=== PATIENT | male | born 2000 | race Caucasian/White ===

== ENCOUNTER 2025-05-23 09:59 | Observation (INO) | payer BC, SELFPAY ==
--- OUTSIDE RECORDS SUMMARY | 2025-05-22 10:45 | XMS_ITS | Encounter Summary ---
Author Organization [facility] Healthcare Address [address] [place] [id number] Care Team Providers Care Photocopy Operator Name Role Phone Unknown, Notinfile Primary Care Provider Unavail able Reason for Visit * Reason Comments Diarrhea Lasting longer than 48 hours. Started Thursday. Thinks it may be food poisoning. Bit into some pink chicken. Denies vomiting. Pepto Bismol not working. Encounter Details Date Type Department Care Team (Late st Contact Info) Description 05/22/2025 10:45 AM CDT Office Visit [facility] at [address] [address] Nasreen Strong NP [address] [place] [address] [address] [place] [address] Diarrhea, unspecified type (Primary Dx); Tachycardia Social History Tobacco Use Types Packs/Day Years Used Date Smoking Tobacco: Never Assessed Sex and Gender Information Value Date Recorded Sex Assigned at Not on file Legal Sex Male 9:29 AM CDT Gender Identity Not on file Sexual Orientation Not on file documented as of this encounter Last Filed Vital Signs Vital Sign Reading Time Taken Comments Blood Pressure 126/89 05/22/2025 10:50 AM CDT Pulse 110 05/22/2025 11:06 AM CDT Temperature 36.9 C (98.5 F) 05/22/2025 10:50 AM CDT Respiratory Rate 20 05/22/2025 10:5 0 AM CDT Oxygen Saturation 97% 05/22/2025 10: 50 AM CDT Inhaled Oxygen Concentration - - Weight 56.6 kg (124 lb 11.2 oz) 025 10:50 AM CDT Height - - Body Mass Index - - documented in this encounter Progress Notes * Nasreen Strong NP - 05/22/2025 10:45 AM CDT Images from the original note were not included. Subjective/Objective Patient ID: Chris Connors is a 24 y.o. male. This patient has verbally consented to recording this visit in order to utilize AI technology in generating this note. Chief Complaint Diarrhea (Lasting longer than 48 hours. Started Thursday. Thinks it may be food poisoning. Bit into some pink chicken. Denies vomiting. Pepto Bismol not working. ) History of Present Illness Chris Connors is a 24 year old male who presents with diarrhea since Thursday night/Thursday am. Diarrhea occurs every 30 minutes to four hours, with no relief from Pepto Bismol. Constant, dull abdominal discomfort is present, especially around the umbilical area. He ate a quesadilla with potentially undercooked chicken on Thursday, with diarrhea starting that night. Stools contain no blood or mucus. No recent travel or known exposures. Roommates are asymptomatic. No fever, chills, sweats, body aches, nausea, or vomiting. He maintains hydration with water and has normal urination. Allergic to amoxicillin. In town for school, living with two roommates. Review of Systems All other systems reviewed and are negative. Physical Exam ABDOMEN: Mild discomfort around the umbilicus. Physical Exam Vitals and nursing note reviewed. Constitutional: General: He is not in acute distress. Appearance: Normal appearance. He is not ill-appearing. Cardiovascular: Rate and Rhythm: Normal rate and regular rhythm. Pulmonary: Effort: Pulmonary effort is normal. Breath sounds: Normal breath sounds. Abdominal: General: Abdomen is flat. Bowel sounds are normal. Palpations: Abdomen is soft. Tenderness: There is abdominal tenderness in the periumbilical area. There is no right CVA tenderness, left CVA tenderness, guarding or rebound. Skin: General: Skin is warm and dry. Capillary Refill: Capillary refill takes less than 2 seconds. Findings: No bruising, erythema or rash. Neurological: Mental Status: He is alert and oriented to person, place, and time. Gait: Gait normal. Vitals: 05/22/25 1050 05/22/25 1106 BP: 126/89 Pulse: 100 110 Resp: 20 Temp: 36.9 ??C (98.5 ??F) TempSrc: Oral SpO2: 97% Weight: 56.6 kg (124 lb 11.2 oz) No results found. No past medical history on file. No current outpatient medications on file. Allergies Allergen Reactions Amoxicillin Rash Social History Tobacco Use Smoking status: Not on file Smokeless tobacco: Not on file Substance and Sexual Activity Drug use: Not on file Sexual activity: Not on file Alcohol Use: Not on file No past surgical history on file. Procedures Assessment/Plan 1. Diarrhea, unspecified type (Primary) 2. Tachycardia Results Assessment & Plan Acute diarrhea Acute gastroenteritis likely. Expected resolution in 24-72 hours. - Avoid Pepto Bismol and Imodium. - discussed with pt I would recommend ED for further evaluation due to abdominal tenderness and tachycardia. Patient states at this time he does not feel like he needs to go to ED. Advised my recommendation is ED. - stressed Visit ER if symptoms worsen, call and schedule follow up with PCP this week. - Maintain hydration. Disposition Treatment plan including expectations, follow up, and return precautions discussed with patient/parent, verbalizes understanding. Medication dosage, use, and potential adverse reactions discussed with patient/parent. Advised to follow up with PCP if symptoms do not resolve as expected or sooner if condition worsens. Signs/symptoms warranting ER evaluation reviewed. Patient and/or guardian was given an opportunity to ask questions, questions answered. Nasreen Strong NP This office note has been partially dictated using [employer] software, and as a result portions of the record may have been created with this software. Occasional wrong-word or '[id number]' substitutions may have occurred due to the inherent limitations of voice recognition software. Read the chartcarefully and recognize, using context, where substitutions have occurred. Cosigned by Avi Coffman MD at 05/22/2025 11:20 AM CDT documented in this encounter Plan of Treatment Not on file documented as of this encounter Visit Diagnoses Diagnosis Diarrhea, unspecified type- Primary Tachycardia Unspecified tachycardia documented in this encounter Care Teams Photocopy Operator Relationship Specialty Start Date End Date Unknown, Notinfile PCP - General 05/22/25 documented as of this encounter
--- OUTSIDE RECORDS SUMMARY | 2025-05-22 10:45 | XMS_ITS | Encounter Summary ---
Author Organization [facility] Healthcare Address [address] [place] [id number] Care Team Providers Care Sustainable Products Marketing Manager Name Role Phone Unknown, Notinfile Primary Care Provider Unavail able Reason for Visit * Reason Comments Diarrhea Lasting longer than 48 hours. Started Thursday. Thinks it may be food poisoning. Bit into some pink chicken. Denies vomiting. Pepto Bismol not working. Encounter Details Date Type Department Care Team (Late st Contact Info) Description 05/22/2025 10:45 AM CDT Office Visit [facility] at [address] [address] Nasreen Strong NP [address] [place] [address] [address] [place] [address] Diarrhea, unspecified type (Primary Dx); [...] office note has been partially dictated using [employer] software, and as a result portions of the record may have been created with this software. Occasional wrong-word or '[id number]' substitutions may have occurred due to the [...] tachycardia documented in this encounter Care Teams Sustainable Products Marketing Manager Relationship Specialty Start Date End Date Unknown, Notinfile PCP - General 05/22/25 documented as of this encounter
[2025-05-23] VITALS (31 sets, daily range): BP systolic 103–132; BP diastolic 63–91; PULSE 82–137; RESP 12–44; TEMP 36.7–37.6; O2SAT 93–100; BMI 16.8
--- NOTE | 2025-05-23 | ECHO_ITS ---
Patient Info Name: Chris Connors Age: 24 years : 2000 Gender: Male Ht: 69 in Wt: 125 lbs BSA: 1.65 m2 HR: 98 bpm BP: 123 / 84 mmHg Heart Rhythm: Sinus Rhythm Technical Quality: Good Exam Date: 05/23/2025 12:46 PM Patient Status: E Admit Date: 05/23/2025 Exam Type: CA echo doppler color flow Complete two-dimensional, color flow and Doppler transthoracic echocardiogram is performed. Staff Referring Physician: Rehana Malik Application Support Developer: Rand Garcia Attending Provider: Rehana Malik Summary 1. Complete two-dimensional, color flow and Doppler transthoracic echocardiogram is performed. 2. Left ventricular chamber dimension is normal. 3. Left ventricular systolic function is normal, estimated at 60-65. 4. The left ventricular diastolic function is normal. 5. E/e' 6 is not elevated. 6. There is trace tricuspid valve regurgitation. 7. No pulmonary hypertension, estimated pulmonary arterial systolic pressure is 23 mmHg. Left Ventricle E/e' 6 is not elevated. Left ventricular chamber dimension is normal. Left ventricular systolic function is normal, estimated at 60-65. The left ventricular diastolic function is normal. Right Ventricle Right ventricular chamber dimension is normal. Right ventricular systolic function is normal and with normal TAPSE 2.7 cm. Left Atria Left atrial chamber dimension is normal. Right Atria Right atrial chamber dimension is normal. Aortic Valve The aortic valve is trileaflet. There is no aortic valve stenosis. There is no aortic valve regurgitation. Pulmonic Valve There is no pulmonic regurgitation. Mitral Valve There is no mitral valve stenosis. There is no mitral valve regurgitation. Tricuspid Valve There is trace tricuspid valve regurgitation. No pulmonary hypertension, estimated pulmonary arterial systolic pressure is 23 mmHg. Pericardium/Pleural There is no pericardial effusion. Inferior Vena Cava Normal inferior vena cava with >50% collapse upon inspiration consistent with normal right atrial pressure, 5 mmHg. Aorta The aortic root size at the sinus of Valsalva is normal. Left Ventricular Outflow Tract Name Value Normal LVOT 2D LVOT Diameter 2.0 cm LVOT Doppler LVOT Peak Velocity 98 cm/s LVOT Peak Gradient 4 mmHg LVOT Mean Gradient 2 mmHg LVOT VTI 16 cm LVOT VTI/AV VTI Ratio 0.8 LVOT Stroke Volume 48 ml LVOT CO 4.7 l/min LVOT CI 2.8 l/min/m2 Pulmonic Valve Name Value Normal RVOT Doppler RVOT Peak Velocity 81 cm/s RVOT Peak Gradient 3 mmHg PV Doppler PV Peak Velocity 106 cm/s PV Peak Gradient 5 mmHg Mitral Valve Name Value Normal MV Diastolic Function MV E Peak Velocity 84 cm/s MV A Peak Velocity 69 cm/s MV E/A 1.2 MV Decel Time (PW) 105 ms MV Annular TDI MV E/e' (Septal) 6.4 MV E/e' (Lateral) 6.2 MV E/e' (Average) 6.3 Tricuspid Valve Name Value Normal TV Regurgitation Doppler TR Peak Velocity 209 cm/s TR Peak Gradient 18 mmHg Estimated PAP/RSVP RA Pressure 5 mmHg <=5 PA Systolic Pressure 23 mmHg <36 RV Systolic Pressure 23 mmHg <36 TV Annular TDI TV Lateral Marisol s' Velocity 15.9 cm/s >=9.5 Aorta Name Value Normal Ascending Aorta Ao Root Diameter (MM) 3.1 cm Ao Root Diam Index (MM) 1.9 cm/m2 Aortic Valve Name Value Normal AV Doppler AV Peak Velocity 120 cm/s AV Peak Gradient 6 mmHg AV Mean Gradient 3 mmHg AV VTI 20 cm AV Area (Cont Eq VTI) 2.4 cm2 >=3.0 AV Area (Cont Eq King) 2.5 cm2 AV DI (King) 0.82 AV Regurgitation 2D LVOT Area 3.0 cm2 Ventricles Name Value Normal LV Dimensions 2D/MM IVS Diastolic Thickness (2D) 0.8 cm 0.6-1.0 LVID Diastole (2D) 4.5 cm 4.2-5.8 LVIW Diastolic Thickness (2D) 0.7 cm 0.6-1.0 LVID Systole (2D) 3.0 cm 2.5-4.0 LVOT Diameter 2.0 cm LV Mass (2D Cubed) 99.50 g 88.00-224.00 LV Mass Index (2D Cubed) 60 g/m2 49-115 Relative Wall Thickness (2D) 0.29 <=0.42 LV Fractional Shortening/Ejection Fraction 2D/MM LV Fractional Shortening (2D) 34 % 25-43 LV EF (2D Teichholz) 63 % LV Diastolic Volume (4C MOD) 67 ml LV EF (4C MOD) 63 % LV Diastolic Volume (2C MOD) 66 ml LV EF (2C MOD) 62 % LV Diastolic Volume (BP MOD) 70 ml 62-150 LV Diastolic Volume Index (BP MOD) 43 ml/m2 34-74 LV Systolic Volume (BP MOD) 28 ml 21-61 LV Systolic Volume Index (BP MOD) 17 ml/m2 11-31 LV EF (BP MOD) 61 % 52-72 LV Diastolic Length (4C) 7.3 cm LV Systolic Length (4C) 5.9 cm LV Stroke Volume (4C MOD) 42 ml Atria Name Value Normal LA Dimensions LA Dimension (MM) 2.8 cm 3.0-4.0 LA Volume (4C A-L) 22 ml LA Volume (BP A-L) 32 ml RA Dimensions RA Area (4C) 11.1 cm2 <=18.0 Report Signatures
--- NOTE | ~2025-05-23 | XR_ITS ---
EXAMINATION: XR chest 2V DATE: 05/23/2025 11:39 INDICATION: Tachycardia TECHNIQUE: PA and lateral views of the chest were obtained. COMPARISON: None FINDINGS: The lungs are clear with no focal airspace opacities, pulmonary edema, pleural effusion or pneumothorax. The cardiomediastinal silhouette is normal. Visualized bones and soft tissues are unremarkable. IMPRESSION: 1. Normal chest radiograph. Reviewed, dictated and finalized at location A. IMPRESSION: 1. Normal chest radiograph.
--- NOTE | 2025-05-23 10:13 | ECG_ITS ---
Test Date: 2025-05-23 10:40:04 Measurements Intervals [place] Rate: 105 P: 64 WY: 142 QRS: 111 QRSD: 93 T: 6 QT: 323 QTc: 427 Interpretive Statements SINUS TACHYCARDIA RIGHT AXIS DEVIATION [QRS AXIS > 100] POSSIBLE RIGHT VENTRICULAR CONDUCTION DELAY [RSR (QR) IN V1/V2] nonspecific st changes No previous ECG available for comparison Electronically Signed On 05-23-2025 14:44:23 CDT by Quinten Jordan M.D.
--- NOTE | 2025-05-23 10:15 | ED.NAVMDI ---
HPI - Nausea/Vomiting/Diarrhea General Chief complaint: Nausea/Vomiting/Diarrhea <Rehana Malik APRN - Last Filed: 05/23/25 12:50> Stated complaint: diarrhea x 3 days <Rehana Malik APRN - Last Filed: 05/23/25 12:50> Time Seen by Provider: 05/23/25 10:02 <Rehana Malik APRN - Last Filed: 05/23/25 12:50> History of Present Illness HPI Narrative: Patient is a 24-year-old male who presents to the ER with complaints of diarrhea for the past 3 days. He reports this morning he noticed blood in his stool. Patient reports his symptoms initially started with abdominal tenderness which has resolved. He also endorses chest pain that resulted yesterday. Patient denies any nausea/vomiting, recent fevers, urinary symptoms, or recent antibiotic use. He denies any medical history relevant to this ER visit. Patient denies any recent marijuana use, alcohol use, or illicit drug use. <Rehana Malik APRN - Last Filed: 05/23/25 12:50> Related Data Allergies/Adverse reactions: Allergies Allergy/AdvReac Type Severity Reaction Status Date / Time amoxicillin Allergy Mild Hives Verified 05/23/25 15:44 <Rehana Malik APRN - Last Filed: 05/23/25 12:50> Review of Systems Review of Systems: All systems reviewed & are unremarkable except as noted in HPI and below <Rehana Malik APRN - Last Filed: 05/23/25 12:50> [facility] Social History Social History: Social History Smoking status: Never smoker Second hand tobacco smoke exposure: No Alcohol intake: former Substance use: never Substance use type: does not use Lack of Transportation: YES Lack of Food: Never True Current Housing: I Have Housing Concerned About Future Housing: No Difficulty Paying Gas/Electric Bills: No Difficulty Paying for Meds: No Currently Unemployed: No Education: Bachelor's Degree Difficulty w/ Childcare or Family Care: No Spiritual care concerns: No <Rehana Malik APRN - Last Filed: 05/23/25 12:50> Exam Narrative: GENERAL: Well appearing, thin, non-toxic, in no acute distress. HEAD: Normocephalic, atraumatic. NECK: Supple. No adenopathy, no masses. RESPIRATORY: Airway patent, respirations nonlabored. Clear to auscultation bilaterally, no rales, rhonchi, wheezing. CARDIOVASCULAR: Tachycardia without murmurs, rubs, or gallops. Peripheral pulses 2+ and equal bilaterally. ABDOMINAL: Soft, nontender, nondistended, no hepatosplenomegaly. Normoactive BS. MUSCULOSKELETAL: Moves all extremities. Strength/ROM intact without gross deformities. SKIN: Warm, dry, pallor. No rashes. NEURO: A&O X3. Speech clear. Cranial nerves II-XII intact. No ataxic movements. PSYCHIATRIC: Appropriate mood and affect. Normal interaction. GI/: Pt's rectal exam indicates no palpable hemorrhoids. His hemoccult is positive. <Rehana Malik, GOMEZ - Last Filed: 05/23/25 12:50> Course RISK AND INSURANCE MANAGER/PA Physician Supervision This visit was performed by both a physician and an APC. I performed all aspects of the MDM as documented. <Otto Neal MD - Last Filed: 05/23/25 17:50> Vital Signs Vital signs: Vital Signs Pulse Rate 97 05/23/25 10:05 Respiratory Rate 21 H 05/23/25 10:05 Blood Pressure 123/84 05/23/25 10:05 Temperature 99.6 F 05/23/25 15:17 Pulse Rate 101 H 05/23/25 16:00 Respiratory Rate 14 05/23/25 15:17 Blood Pressure 132/88 05/23/25 15:17 Pulse Oximetry 98 05/23/25 15:17 Oxygen Delivery Room Air 05/23/25 10:11 <Rehana Malik APRN - Last Filed: 05/23/25 12:50> Vital Signs Pulse Rate 97 05/23/25 10:05 Respiratory Rate 21 H 05/23/25 10:05 Blood Pressure 123/84 05/23/25 10:05 Temperature 99.6 F 05/23/25 15:17 Pulse Rate 101 H 05/23/25 16:00 Respiratory Rate 14 05/23/25 15:17 Blood Pressure 132/88 05/23/25 15:17 Pulse Oximetry 98 05/23/25 15:17 Oxygen Delivery Room Air 05/23/25 10:11 <Otto Neal MD - Last Filed: 05/23/25 17:50> MDM - Nausea/Vomiting/Diarrhea MDM Narrative Medical decision making narrative: Patient is a 24-year-old male who presents to the ER with complaints of diarrhea for the past 3 days. He reports this morning he noticed blood in his stool. Patient reports his symptoms initially started with abdominal tenderness which has resolved. He also endorses chest pain that resulted yesterday. Patient denies any nausea/vomiting, recent fevers, urinary symptoms, or recent antibiotic use. He denies any medical history relevant to this ER visit. Patient denies any recent marijuana use, alcohol use, or illicit drug use. Labs Ordered: CBC, CMP, troponin, PTT, INR, UDS, UA Imaging Ordered: Echocardiogram, chest x-ray Medications Ordered: 1 L normal saline IV bolus, potassium chloride p.o. Diagnosis: Elevated troponin, tachycardia Risks: HEART score: low risk HEART Score for Major Cardiac Events from [email or web address] on 05/23/2025 All calculations should be rechecked by clinician prior to use RESULT SUMMARY: 1 points Low Score (0-3 points) Risk of MACE of 0.9-1.7%. INPUTS: History ?> 0 = Slightly suspicious EKG ?> 1 = Non-specific repolarization disturbance Age ?> 0 = <45 Risk factors ?> 0 = No known risk factors Initial troponin ?> 0 = <Normal limit CRITICAL CARE ADDENDUM: Indication: Chest pain, rectal bleeding, tachycardia Time type: intermittent I provided a total of 55 minutes of critical care excluding separately billable procedures. This includes time w/ EMS, initial bedside evaluation, reviewing old records, review of testing done while under my care, discussion w/ the family, nurses, clinical documentation consultant and guiding the patient?s care while in the emergency department. Approximate time distribution: 15 minutes ? Initial evaluation, d/w involved parties, attempting to gather old records. 10 minutes ? Documenting medical record 10 minutes ? Review of results (EKGs, labs, imaging) 10 minutes ? Serial repeat bedside evaluation 10 minutes ? Discussing case with multiple providers Please see main chart for details. Excludes separately billable procedures. Consults: 1130- Spoke with cardiology, Dinorah Shanks, who recommends pt be admitted to the hospital for further work-up. She would like to have an ECHO performed on pt. 1145- Pt's rectal exam indicates no palpable hemorrhoids. His hemoccult is positive. 1155- Spoke with GI, Dr. Schwarz, who is aware of the patient and will consult on him. MDM: Results of imaging and lab work shared with patient and his family. It was advised patient be admitted to the hospital for further evaluation and treatment. Patient and his family verbalized understanding and are in agreement with plan. 1230- Spoke with hospitalist, JUAN JOSÉ Garcia, who was in agreement with plan for admission. Pt will be admitted to the IMU d/t his elevated troponins. <Rehana Malik, LINE MOVER - Last Filed: 05/23/25 12:50> Patient is a 24-year-old male who presents to the ER with complaints of diarrhea for the past 3 days. He reports this morning he noticed blood in his stool. Patient reports his symptoms initially started with abdominal tenderness which has resolved. He also endorses chest pain that resulted yesterday. Patient denies any nausea/vomiting, recent fevers, urinary symptoms, or recent antibiotic use. He denies any medical history relevant to this ER visit. Patient denies any recent marijuana use, alcohol use, or illicit drug use. Labs Ordered: CBC, CMP, troponin, PTT, INR, UDS, UA Imaging Ordered: Echocardiogram, chest x-ray Medications Ordered: 1 L normal saline IV bolus, potassium chloride p.o. Diagnosis: Elevated troponin, tachycardia Risks: HEART score: low risk HEART Score for Major Cardiac Events from [email or web address] on 05/23/2025 All calculations should be rechecked by clinician prior to use RESULT SUMMARY: 1 points Low Score (0-3 points) Risk of MACE of 0.9-1.7%. INPUTS: History ?> 0 = Slightly suspicious EKG ?> 1 = Non-specific repolarization disturbance Age ?> 0 = <47 Risk factors ?> 0 = No known risk factors Initial troponin ?> 0 = <Normal limit CRITICAL CARE ADDENDUM: Indication: Chest pain, rectal bleeding, tachycardia Time type: intermittent I provided a total of 55 minutes of critical care excluding separately billable procedures. This includes time w/ EMS, initial bedside evaluation, reviewing old records, review of testing done while under my care, discussion w/ the family, nurses, clinical documentation consultant and guiding the patient?s care while in the emergency department. Approximate time distribution: 15 minutes ? Initial evaluation, d/w involved parties, attempting to gather old records. 10 minutes ? Documenting medical record 10 minutes ? Review of results (EKGs, labs, imaging) 10 minutes ? Serial repeat bedside evaluation 10 minutes ? Discussing case with multiple providers Please see main chart for details. Excludes separately billable procedures. Consults: 1130- Spoke with cardiology, Dinorah Shanks, who recommends pt be admitted to the hospital for further work-up. She would like to have an ECHO performed on pt. 1145- Pt's rectal exam indicates no palpable hemorrhoids. His hemoccult is positive. 1155- Spoke with GI, Dr. Schwarz, who is aware of the patient and will consult on him. MDM: Results of imaging and lab work shared with patient and his family. It was advised patient be admitted to the hospital for further evaluation and treatment. Patient and his family verbalized understanding and are in agreement with plan. 1230- Spoke with hospitalist, JUAN JOSÉ Garcia, who was in agreement with plan for admission. Pt will be admitted to the IMU d/t his elevated troponins. This visit was performed by both a physician and an APC. I performed all aspects of the MDM as documented. <Otto Neal MD - Last Filed: 05/23/25 17:50> Differential Diagnosis Differential diagnosis: Likely gastroenteritis, dehydration and other (Hemorrhoids, NSTEMI, pericarditis, enodcarditis) <Rehana Malik APRN - Last Filed: 05/23/25 12:50> Lab Data Attestation: I reviewed the patient's lab results. <Rehana Malik APRN - Last Filed: 05/23/25 12:50> Result diagrams: 05/23/25 10:39 05/23/25 10:39 <Rehana Malik APRN - Last Filed: 05/23/25 12:50> Labs: Lab Results 05/23/25 05/23/25 05/23/25 Range/Units 10:38 10:39 10:40 WBC 5.8 (4.5-10.0) K/mm3 RBC 5.33 (4.6-6.20) M/mm3 Hgb 16.4 (14.0-18.0) g/dL Hct 46.6 (42.0-52.0) % MCV 87.4 (80-100) fl MCH 30.8 (26-34) pg MCHC 35.2 (32-36) g/dl RDW 11.8 (11.5-14.5) % Plt Count 188 (150-375) k/mm3 MPV 9.7 (7.4-10.4) fl Immature Gran % (Auto) 0.2 (0-0.5) % Neut % (Auto) 61.9 (45.5-73.1) % Lymph % (Auto) 17.0 L (18.3-44.2) % Emery % (Auto) 19.2 H (2.6-8.5) % Eos % (Auto) 1.4 (0-4.4) % Baso % (Auto) 0.3 (0.2-1.2) % Lymph # (Auto) 0.99 (0.9-3.2) K/mm3 Emery # (Auto) 1.1 H (0.1-0.6) K/mm3 Eos # (Auto) 0.1 (0-0.3) K/mm3 Baso # (Auto) 0.0 (0.0-0.1) K/mm3 Abs Immat Gran (auto) 0.01 (0.00-0.031) K/mm3 Absolute Neuts (auto) 3.6 (1.3-6.7) K/mm3 Absolute Nucleated RBC 0.000 (0.0-0.012) K/mm3 Nucleated RBC % 0.0 (0.0-0.2) % PT (11.1-14.7) Seconds INR APTT (22.3-36.8) Seconds D-Dimer (<0.48) ug/mL Sodium 139 (137-145) mmol/L Potassium 3.3 L (3.4-5.0) mmol/L Chloride 98 (98-107) mmol/L Carbon Dioxide 28 (22-30) mmol/L Anion Gap 13 H (4-12) mmol/L BUN 11 (9-20) mg/dL Creatinine 0.81 (0.7-1.3) mg/dL Estim Creat Clear Calc 100 ml/min Estimated GFR > 60 (59 - ) Glucose 103 (65-110) mg/dL Calcium 9.4 (8.4-10.2) mg/dL Total Bilirubin 1.3 (0.2-1.3) mg/dL AST 37 (17-59) U/L ALT 45 (6-50) U/L Alkaline Phosphatase 57 (38-126) U/L Troponin I 1.790 H* (0.000-0.034) ng/mL Total Protein 8.7 H (6.3-8.2) g/dL Albumin 5.1 (3.5-5.1) g/dL Lipase 46 (23-300) U/L TSH (Reflex) 2.180 (0.465-4.68) uIU/mL Urine Color Yellow (Yellow) Urine Appearance Clear (Clear) Urine pH 6.5 (5.0-9.0) Ur Specific Randall 1.009 (1.001-1.035) Urine Protein Negative (Negative) mg/dL Urine Glucose (UA) Negative (Negative) mg/dL Urine Ketones 2+ H (Negative) mg/dL Ur Blood (Man) Negative (Negative) Urine Nitrate Negative (Negative) Urine Bilirubin Negative (Negative) Urine Urobilinogen 0.2 (<2.0) mg/dL Leukocyte Esterase Rfl Negative (Negative) JAVI/UL Urine Opiates Screen Negative (Negative) Urine Methadone Screen Negative (Negative) Ur Barbiturates Screen Negative (Negative) Ur Phencyclidine Scrn Negative (Negative) Ur Amphetamine Screen Negative (Negative) U Benzodiazepines Scrn Negative (Negative) Urine Cocaine Screen Negative (Negative) U Cannabinoids Screen Negative (Negative) C. difficile (PCR) Positive A* (NEGATIVE) 05/23/25 Range/Units 11:29 WBC (4.5-10.0) K/mm3 RBC (4.6-6.20) M/mm3 Hgb (14.0-18.0) g/dL Hct (42.0-52.0) % MCV (80-100) fl MCH (26-34) pg MCHC (32-36) g/dl RDW (11.5-14.5) % Plt Count (150-375) k/mm3 MPV (7.4-10.4) fl Immature Gran % (Auto) (0-0.5) % Neut % (Auto) (45.5-73.1) % Lymph % (Auto) (18.3-44.2) % Emery % (Auto) (2.6-8.5) % Eos % (Auto) (0-4.4) % Baso % (Auto) (0.2-1.2) % Lymph # (Auto) (0.9-3.2) K/mm3 Emery # (Auto) (0.1-0.6) K/mm3 Eos # (Auto) (0-0.3) K/mm3 Baso # (Auto) (0.0-0.1) K/mm3 Abs Immat Gran (auto) (0.00-0.031) K/mm3 Absolute Neuts (auto) (1.3-6.7) K/mm3 Absolute Nucleated RBC (0.0-0.012) K/mm3 Nucleated RBC % (0.0-0.2) % PT 14.5 (11.1-14.7) Seconds INR 1.1 APTT 30.0 (22.3-36.8) Seconds D-Dimer 0.35 (<0.48) ug/mL Sodium (137-145) mmol/L Potassium (3.4-5.0) mmol/L Chloride (98-107) mmol/L Carbon Dioxide (22-30) mmol/L Anion Gap (4-12) mmol/L BUN (9-20) mg/dL Creatinine (0.7-1.3) mg/dL Estim Creat Clear Calc ml/min Estimated GFR (59 - ) Glucose (65-110) mg/dL Calcium (8.4-10.2) mg/dL Total Bilirubin (0.2-1.3) mg/dL AST (17-59) U/L ALT (6-50) U/L Alkaline Phosphatase (38-126) U/L Troponin I (0.000-0.034) ng/mL Total Protein (6.3-8.2) g/dL Albumin (3.5-5.1) g/dL Lipase (23-300) U/L TSH (Reflex) (0.465-4.68) uIU/mL Urine Color (Yellow) Urine Appearance (Clear) Urine pH (5.0-9.0) Ur Specific Randall (1.001-1.035) Urine Protein (Negative) mg/dL Urine Glucose (UA) (Negative) mg/dL Urine Ketones (Negative) mg/dL Ur Blood (Man) (Negative) Urine Nitrate (Negative) Urine Bilirubin (Negative) Urine Urobilinogen (<2.0) mg/dL Leukocyte Esterase Rfl (Negative) JAVI/UL Urine Opiates Screen (Negative) Urine Methadone Screen (Negative) Ur Barbiturates Screen (Negative) Ur Phencyclidine Scrn (Negative) Ur Amphetamine Screen (Negative) U Benzodiazepines Scrn (Negative) Urine Cocaine Screen (Negative) U Cannabinoids Screen (Negative) C. difficile (PCR) (NEGATIVE) <Rehana Malik, LINE MOVER - Last Filed: 05/23/25 12:50> Lab Results 05/23/25 05/23/25 05/23/25 Range/Units 10:38 10:39 10:40 WBC 5.8 (4.5-10.0) K/mm3 RBC 5.33 (4.6-6.20) M/mm3 Hgb 16.4 (14.0-18.0) g/dL Hct 46.6 (42.0-52.0) % MCV 87.4 (80-100) fl MCH 30.8 (26-34) pg MCHC 35.2 (32-36) g/dl RDW 11.8 (11.5-14.5) % Plt Count 188 (150-375) k/mm3 MPV 9.7 (7.4-10.4) fl Immature Gran % (Auto) 0.2 (0-0.5) % Neut % (Auto) 61.9 (45.5-73.1) % Lymph % (Auto) 17.0 L (18.3-44.2) % Emery % (Auto) 19.2 H (2.6-8.5) % Eos % (Auto) 1.4 (0-4.4) % Baso % (Auto) 0.3 (0.2-1.2) % Lymph # (Auto) 0.99 (0.9-3.2) K/mm3 Emery # (Auto) 1.1 H (0.1-0.6) K/mm3 Eos # (Auto) 0.1 (0-0.3) K/mm3 Baso # (Auto) 0.0 (0.0-0.1) K/mm3 Abs Immat Gran (auto) 0.01 (0.00-0.031) K/mm3 Absolute Neuts (auto) 3.6 (1.3-6.7) K/mm3 Absolute Nucleated RBC 0.000 (0.0-0.012) K/mm3 Nucleated RBC % 0.0 (0.0-0.2) % PT (11.1-14.7) Seconds INR APTT (22.3-36.8) Seconds D-Dimer (<0.48) ug/mL Sodium 139 (137-145) mmol/L Potassium 3.3 L (3.4-5.0) mmol/L Chloride 98 (98-107) mmol/L Carbon Dioxide 28 (22-30) mmol/L Anion Gap 13 H (4-12) mmol/L BUN 11 (9-20) mg/dL Creatinine 0.81 (0.7-1.3) mg/dL Estim Creat Clear Calc 100 ml/min Estimated GFR > 60 (59 - ) Glucose 103 (65-110) mg/dL Calcium 9.4 (8.4-10.2) mg/dL Total Bilirubin 1.3 (0.2-1.3) mg/dL AST 37 (17-59) U/L ALT 45 (6-50) U/L Alkaline Phosphatase 57 (38-126) U/L Troponin I 1.790 H* (0.000-0.034) ng/mL Total Protein 8.7 H (6.3-8.2) g/dL Albumin 5.1 (3.5-5.1) g/dL Lipase 46 (23-300) U/L TSH (Reflex) 2.180 (0.465-4.68) uIU/mL Urine Color Yellow (Yellow) Urine Appearance Clear (Clear) Urine pH 6.5 (5.0-9.0) Ur Specific Randall 1.009 (1.001-1.035) Urine Protein Negative (Negative) mg/dL Urine Glucose (UA) Negative (Negative) mg/dL Urine Ketones 2+ H (Negative) mg/dL Ur Blood (Man) Negative (Negative) Urine Nitrate Negative (Negative) Urine Bilirubin Negative (Negative) Urine Urobilinogen 0.2 (<2.0) mg/dL Leukocyte Esterase Rfl Negative (Negative) JAVI/UL Urine Opiates Screen Negative (Negative) Urine Methadone Screen Negative (Negative) Ur Barbiturates Screen Negative (Negative) Ur Phencyclidine Scrn Negative (Negative) Ur Amphetamine Screen Negative (Negative) U Benzodiazepines Scrn Negative (Negative) Urine Cocaine Screen Negative (Negative) U Cannabinoids Screen Negative (Negative) C. difficile (PCR) Positive A* (NEGATIVE) 05/23/25 Range/Units 11:29 WBC (4.5-10.0) K/mm3 RBC (4.6-6.20) M/mm3 Hgb (14.0-18.0) g/dL Hct (42.0-52.0) % MCV (80-100) fl MCH (26-34) pg MCHC (32-36) g/dl RDW (11.5-14.5) % Plt Count (150-375) k/mm3 MPV (7.4-10.4) fl Immature Gran % (Auto) (0-0.5) % Neut % (Auto) (45.5-73.1) % Lymph % (Auto) (18.3-44.2) % Emery % (Auto) (2.6-8.5) % Eos % (Auto) (0-4.4) % Baso % (Auto) (0.2-1.2) % Lymph # (Auto) (0.9-3.2) K/mm3 Emery # (Auto) (0.1-0.6) K/mm3 Eos # (Auto) (0-0.3) K/mm3 Baso # (Auto) (0.0-0.1) K/mm3 Abs Immat Gran (auto) (0.00-0.031) K/mm3 Absolute Neuts (auto) (1.3-6.7) K/mm3 Absolute Nucleated RBC (0.0-0.012) K/mm3 Nucleated RBC % (0.0-0.2) % PT 14.5 (11.1-14.7) Seconds INR 1.1 APTT 30.0 (22.3-36.8) Seconds D-Dimer 0.35 (<0.48) ug/mL Sodium (137-145) mmol/L Potassium (3.4-5.0) mmol/L Chloride (98-107) mmol/L Carbon Dioxide (22-30) mmol/L Anion Gap (4-12) mmol/L BUN (9-20) mg/dL Creatinine (0.7-1.3) mg/dL Estim Creat Clear Calc ml/min Estimated GFR (59 - ) Glucose (65-110) mg/dL Calcium (8.4-10.2) mg/dL Total Bilirubin (0.2-1.3) mg/dL AST (17-59) U/L ALT (6-50) U/L Alkaline Phosphatase (38-126) U/L Troponin I (0.000-0.034) ng/mL Total Protein (6.3-8.2) g/dL Albumin (3.5-5.1) g/dL Lipase (23-300) U/L TSH (Reflex) (0.465-4.68) uIU/mL Urine Color (Yellow) Urine Appearance (Clear) Urine pH (5.0-9.0) Ur Specific Randall (1.001-1.035) Urine Protein (Negative) mg/dL Urine Glucose (UA) (Negative) mg/dL Urine Ketones (Negative) mg/dL Ur Blood (Man) (Negative) Urine Nitrate (Negative) Urine Bilirubin (Negative) Urine Urobilinogen (<2.0) mg/dL Leukocyte Esterase Rfl (Negative) JAVI/UL Urine Opiates Screen (Negative) Urine Methadone Screen (Negative) Ur Barbiturates Screen (Negative) Ur Phencyclidine Scrn (Negative) Ur Amphetamine Screen (Negative) U Benzodiazepines Scrn (Negative) Urine Cocaine Screen (Negative) U Cannabinoids Screen (Negative) C. difficile (PCR) (NEGATIVE) <Otto Neal MD - Last Filed: 05/23/25 17:50> Imaging Data Attestation: I personally reviewed and interpreted this imaging study as follows: <Rehana Malik APRN - Last Filed: 05/23/25 12:50> Radiologist's impression: Impressions Chest X-Ray 05/23/25 11:47 IMPRESSION: 1. Normal chest radiograph. <Rehana Malik APRN - Last Filed: 05/23/25 12:50> Critical Care Time Critical Care Time Critical Care Time: Yes <Rehana Malik APRN - Last Filed: 05/23/25 12:50> Total Critical Care Time: 55 <Rehana Malik APRN - Last Filed: 05/23/25 12:50> Discharge Plan Discharge Clinical Impression: Elevated troponin, Hypokalemia, Diarrhea, Rectal bleed, Tachycardia <Rehana Malik APRN - Last Filed: 05/23/25 12:50> Patient Disposition: Still a Patient <Rehana Malik APRN - Last Filed: 05/23/25 12:50> Condition: Stable <Rehana Malik APRN - Last Filed: 05/23/25 12:50>
[2025-05-23] MEDS: SODIUM CHLORIDE 0.9% IV 1,000 ML 999 ML IV CONT ×2 (10:41→18:30)
--- OUTSIDE RECORDS SUMMARY | 2025-05-23 10:46 | XMS_ITS | Clinical Summary ---
Author Organization [facility] Address [address] [place] [address] Phone Care Team Providers Care Site Safety Manager Name Role Phone Raoul Spencer MD Primary Care Provider [phone] Allergies Active Allergy Reactions Criticality Noted Date Comments Amoxicillin Rash 07/28/2018 Medications No known medications Active Problems No known active problems Immunizations Immunization Administration Dates Next Due DTAP VACCINE 08/05/2007, 4,01/02/2003,11/03,2002 HIB Vaccine (PRP-T) 09/20/2003, 3,2002,08/31 Hepatitis A Vaccine 03/16/2017,12/22/2013 Hepatitis A Vaccine, Pediatric/adolescent, 2 Dose Schedule 03/16/2017 Hepatitis B Vaccine 01/02/2003,2002,2001 Human Papillomavirus Vaccine (HPV), quadrivalent 07/10/2014,03/03/2014,12/22/2013 Inactivated Polio Vaccine 08/05/2007,01/2003,2002,08/31 Influenza Vaccine Nasal 07/10/2014 Influenza Vaccine greater than 3 yrs ,08/05/2007,08/05/2007,06/25 Influenza Vaccine less than 3 yrs 07/25/2003, MMR Vaccine 08/05/2007,06/22/2003 Meningococcal MCV4O 03/15/2020 Meningococcal Vaccine 12/22/2013 Pneumococcal Vaccine Peds - 7 Valent ,01/02/2003,2002,08/31 TDAP Vaccine 12/22/2013 Varicella Vaccine Live 08/05/2007,06/22/2003 Social History Tobacco Use Types Packs/Day Years Used Date Smoking Tobacco: Never Smokeless Tobacco: Never Tobacco Cessation:Counseling Given: No Alcohol Use Standard Drinks/Week Comments No 0 (1 standard drink = 0.6 oz pur e alcohol) PHQ-2 Answer Date Recorded PHQ-2 Score 0 05/09/2019 Sexually Active Control Partners Comments Never Sex and Gender Information Value Date Recorded Sex Assigned at Male 04/07/2023 9:57 AM CDT 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 Gender Identity Male 04/07/2023 9:57 AM CDT Sexual Orientation Not on file Last Filed Vital Signs Vital Sign Reading Time Taken Comments Blood Pressure 120/80 04/07/2023 10:10 AM CDT Pulse 82 04/07/2023 10:10 AM CDT Temperature 37.2 C (99 F) 04/07/2023 10:10 AM CDT Respiratory Rate 16 04/07/2023 10:1 0 AM CDT Oxygen Saturation 99% 04/07/2023 10: 10 AM CDT Inhaled Oxygen Concentration - - Weight 57.1 kg (125 lb 12.8 oz) 023 10:10 AM CDT Height 172.7 cm (5' 8) 04/07/2023 10:1 0 AM CDT Body Mass Index 19.13 04/07/2023 10:10 AM CDT Plan of Treatment Health Maintenance Due Date Last Done Comments Hepatitis C Virus (HCV) Screening 2002 Meningococcal B Immunization (1 of 2 - Standard) 2018 DTaP/Tdap/Td Immunization (7 - Td or Tdap) 12/23/2023 12/22/2013, 08/05/2007, 09/20/2003, Additional history exists Influenza Immunization (#1) 04/24/202506/24, 07/10/2014, 08/05/2007, Additional history exists SARS-COV-2 Immunization ( season) 2025 09/01/2021, 12/29/2020, 12/08/2020 Respiratory Syncytial Virus (RSV) Immunization (Adult) (1 - 1-dose 75+ series) 2077 Hepatitis B Immunization Completed 003, 2002, 2002 Pneumococcal Immunization Combined Aged Out 06/22/2003, 01/02/2003, 2002, Additional history exists No longer eligible based on patient's age to complete this topic Measles Mumps Rubella (MMR) Immunization Discontinued 08/05/2007, 06/22/2003 Polio (IPV) Immunization Discontinued 007, 03/29/2003, 2002, Additional history exists Varicella Immunization Discontinued 08/05/2007, 2002 Human Papillomavirus (HPV) Immunization Completed 07/10/2014, 03/03/2014, 12/22/2013 Hepatitis A Immunization Discontinued 017, 03/16/2017, 12/22/2013 Meningococcal Immunization (ACWY) Completed 03/15/2020, 12/22/2013 Rotavirus Immunization Aged Out No lo nger eligible based on patient's age to complete this topic Insurance [facility] [address] Care Teams Site Safety Manager Relationship Specialty Start Date End Date Raoul Spencer MD [address] [id number] PCP - General Family Medicine 09/22/19
--- OUTSIDE RECORDS SUMMARY | 2025-05-23 10:46 | XMS_ITS | Clinical Summary ---
Author Organization [address] [address] Care Team Providers Care Technical Data Analyst Name Role Phone Unknown, Notinfile Primary Care Provider Unavail able Allergies Active Allergy Reactions Criticality Noted Date Comments Amoxicillin Rash Medium 07/28/2018 Medications No known medications Active Problems No known active problems Encounters Date Type Department Care Team Description 05/22/2025 10:45 AM CDT Office Visit [facility] at [address] [address] Nasreen Strong NP Diarrhea, unspecified type (Primary Dx); Tachycardia from Last 3 Months Social History Tobacco Use Types Packs/Day Years Used Date Smoking Tobacco: Never Assessed Sex and Gender Information Value Date Recorded Sex Assigned at Not on file Legal Sex Male 9:29 AM CDT Gender Identity Not on file Sexual Orientation Not on file Obstetrics History Last Filed Vital Signs Vital Sign Reading [...] - - Body Mass Index - - Plan of Treatment Health Maintenance Due Date Last Done Comments Depression Screening 2002 Hepatitis C Screening 2002 Meningococcal B Vaccine (1 o f 2 - Standard) 2018 Regular Well Visit/Exam 18-64 2020 DTaP/Tdap/Td Vaccine (7 - Td or Tdap) 12/23/2023 12/22/2013, 08/05/2007, 09/20/2003, Additional history exists Covid-19 Vaccine (4 - 2024-2 6 season) 2025 09/01/2021, 12/29/2020, 12/08/2020 Influenza Vaccine (#1) 2025 4, 07/10/2014, 08/05/2007, Additional history exists Hepatitis B Screening Completed 01/02/2003 , 2002, 2002 Pneumococcal vaccine <65 Completed 003, 01/02/2003, 2002, Additional history exists Varicella Vaccines Completed 08/05/2007, 06/22/2003 HPV Vaccines Completed 07/10/2014, 02/21, 12/22/[address] [place] [address] [address] [employer] Care Teams Technical Data Analyst Relationship Specialty Start Date End Date Unknown, Notinfile PCP - General 05/22/25
[2025-05-23 10:58] LABS: Add Urine Microscopic? NO; Appearance Urine Clear (Clear); Glucose Urine UA Negative (Negative); Leukocyte Esterase Ur Negative LEU/UL (Negative); Nitrate Urine Negative (Negative); Specific Grav Ur 1.009 (1.001-1.035)
[2025-05-23 11:04] LABS: Hematocrit 46.6 % (42.0-52.0); Hemoglobin 16.4 g/dL (14.0-18.0); Immature Granulocyte Percent A 0.2 % (0-0.5); Lymphocytes Absolute Auto 0.99 K/mm3 (0.9-3.2); Mean Corpuscular HGB Conc 35.2 g/dl (32-36); Mean Corpuscular Hemoglobin 30.8 pg (26-34); Mean Corpuscular Volume 87.4 fl (80-100); Nucleated Red Blood Cells Absolute Auto 0.000 K/mm3 (0.0-0.012); Nucleated Red Blood Cells Perc 0.0 % (0.0-0.2); Platelet Count Result 188 k/mm3 (150-375); Red Blood Count 5.33 M/mm3 (4.6-6.20); White Blood Count 5.8 K/mm3 (4.5-10.0)
[2025-05-23 11:08] LABS: Alanine Aminotransferase 45 U/L (6-50); Albumin Level 5.1 g/dL (3.5-5.1); Alkaline Phosphatase 57 U/L (38-126); Anion Gap 13 mmol/L (4-12); Aspartate Amino Transferase 37 U/L (17-59); Bilirubin,Total 1.3 mg/dL (0.2-1.3); Blood Urea Nitrogen 11 mg/dL (9-20); Calcium 9.4 mg/dL (8.4-10.2); Carbon Dioxide 28 mmol/L (22-30); Chloride 98 mmol/L (98-107); Estimated CRCL calculation 100 ml/min; Estimated Glomerular Filt Rate > 60; Glucose 103 mg/dL (65-110); Lipase 46 U/L (23-300); Potassium 3.3 mmol/L (3.4-5.0); Sodium 139 mmol/L (137-145); Total Protein 8.7 g/dL (6.3-8.2)
--- OUTSIDE RECORDS SUMMARY | 2025-05-23 11:08 | XMS_ITS | Clinical Summary ---
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
--- OUTSIDE RECORDS SUMMARY | 2025-05-23 11:08 | XMS_ITS | Clinical Summary ---
Author Organization [address] [address] Care Team Providers Care Regional Marketing Director Name Role Phone Unknown, Notinfile Primary Care Provider Unavail able Allergies Active Allergy Reactions Criticality Noted Date Comments Amoxicillin Rash Medium 07/28/2018 Medications No known medications Active Problems No known active problems Encounters Date Type Department Care Team Description 05/22/2025 10:45 AM CDT Office Visit [facility] at [address] [address] Nasreen Strong NP Diarrhea, unspecified [...] HPV Vaccines Completed 07/10/2014, 02/21, 12/22/[address] [place] [address] [employer] Care Teams Regional Marketing Director Relationship Specialty Start Date End Date Unknown, Notinfile PCP - General 05/22/25
[2025-05-23 11:16] LABS: Cannabinoid Screen Urine Negative (Negative)
[2025-05-23 11:21] LABS: Troponin I 1.790 ng/mL (0.000-0.034)
[2025-05-23] MEDS: POTASSIUM CHLORIDE 20 MEQ PACKET (FOR LIQUID) 40 MEQ PO (11:43)
--- NOTE | 2025-05-23 11:46 | PC.NURSE ---
Rectal exam performed by Vanessa FARRAR with this rn assisting
[2025-05-23 12:15] LABS: INR 1.1; Partial Thromboplastin Time 30.0 Seconds (22.3-36.8); Prothrombin Time 14.5 Seconds (11.1-14.7)
[2025-05-23 12:49] LABS: Thyroid Stimulating Hormone Reflex 2.180 uIU/mL (0.465-4.68)
--- NOTE | 2025-05-23 13:04 | ECG_ITS ---
Test Date: 2025-05-23 13:52:56 Measurements Intervals [place] Rate: 101 P: 72 PA: 143 QRS: 81 QRSD: 94 T: 30 QT: 317 QTc: 411 Interpretive Statements SINUS TACHYCARDIA POSSIBLE RIGHT VENTRICULAR CONDUCTION DELAY [RSR (QR) IN V1/V2] ABNORMAL RHYTHM ECG Electronically Signed On 05-23-2025 14:46:49 CDT by Quinten Jordan M.D.
[2025-05-23 13:17] LABS: Toxigenic C. Diff POSITIVE (NEGATIVE)
[2025-05-23] MEDS: PANTOPRAZOLE SODIUM IV 40 MG VIAL IV PUSH (13:28)
--- NOTE | 2025-05-23 13:44 | P.HP_ITS ---
H&P: HPI History of Present Illness Date/Time: 05/23/25 13:44 Chief Complaint: Diarrhea Narrative: 24-year-old previously healthy male presents the hospital with 3 days of diarrhea and blood in stools. He also complains of chest pain that started yesterday. Patient denies being around sick contacts, recent antibiotic use. Patient states that he lives in apartment with 2 other roommates and fairly clean. Mother at bedside and agrees with this statement. Patient complains of minimal abdominal pain. No nausea or vomiting. Lab work in the ED CBC is within normal limits, potassium 3.3, anion gap 13, troponin 1.790, UA negative for infection, toxicology negative, C diff positive. Chest x-ray with no acute findings. EKG was sinus tachycardia rate of 105. Cardiology and GI consulted. Patient started on oral vancomycin And IV fluids Review of Systems Review of Systems: 12 systems were reviewed and are negativ e except for as per HPI. [facility] Social History Social History Smoking status: Never smoker Second hand tobacco smoke exposure: No Alcohol intake: former Substance use: never Substance use type: does not use Lack of Transportation: YES Lack of Food: Never True Current Housing: I Have Housing Concerned About Future Housing: No Difficulty Paying Gas/Electric Bills: No Difficulty Paying for Meds: No Currently Unemployed: No Education: Bachelor's Degree Difficulty w/ Childcare or Family Care: No Spiritual care concerns: No Meds Home Medications and Allergies Home Medications ?Medication ?Instructions ?Recorded ?Confirmed ?Type No Home Medications 05/23/25 05/23/25 H istory Allergies Allergy/AdvReac Type Severity Reaction Status Date / Time amoxicillin Allergy Mild Hives Verified 05/23/25 15:44 Vital Signs Vital Signs - 24 hr 05/23/25 10:05 05/23/25 10:10 05/23/25 10:11 Temperature 98.8 F Pulse Rate 97 113 H 111 H Respiratory Rate 21 H 14 20 Blood Pressure 123/84 123/84 Pulse Oximetry 99 98 Oxygen Delivery Room Air 05/23/25 10:15 05/23/25 10:16 05/23/25 10:33 Temperature Pulse Rate 101 H 104 H 111 H Respiratory Rate 19 19 15 Blood Pressure 124/91 H Pulse Oximetry 98 98 98 Oxygen Delivery 05/23/25 11:25 05/23/25 11:35 05/23/25 11:45 Temperature Pulse Rate 91 137 H Respiratory Rate 23 H 44 H Blood Pressure Pulse Oximetry 98 98 Oxygen Delivery 05/23/25 12:05 05/23/25 12:15 05/23/25 13:20 Temperature Pulse Rate 103 H 105 H Respiratory Rate 18 23 H Blood Pressure 119/81 Pulse Oximetry 98 100 Oxygen Delivery Exam Narrative: General: well appearing, appears stated age. HEENT: normocephalic, atraumatic. Mucous membranes moist. EOMI, PERRLA, bilateral sclera anicteric, no conjunctival injection. Neck supple without JVD, lymphadenopathy, or bruit. Respiratory: clear to ascultation bilaterally. No rales/rhonic/wheezes. Cardiovascular: Regular rate and rhythm, normal S1-S2 upon ascultation. No murmurs, rubs, or clicks. PMI is nondisplaced, capillary refill less than 3 second. Abdomen: Soft, round, no pulsatile masses, nondistended and nontender. No rebound, no guarding. No CVA tenderness, no hepatosplenomegaly. Bowel sounds present to all four quadrants. No high pitch or tinkling sounds, resonant to percussion. Extremities: No cyanosis, clubbing, or edema present. Pulses are palpable 2/2. Active ROM to all four extremities. Neuro: Alert and orientated x 4. PERRLA. Cranial nerves 2-12 intact without focal deficit. Skin: Warm, dry, and intact, without rash, erythema, or lesion. Psych: pleasant, cooperative, normal speech, normal affect, no hallucinations, no dysarthia H&P: Results Labs Labs: Short CBC 05/23/25 Range/Units 10:39 WBC 5.8 (4.5-10.0) K/mm3 Hgb 16.4 (14.0-18.0) g/dL Hct 46.6 (42.0-52.0) % Plt Count 188 (150-375) k/mm3 BMP 05/23/25 10:39 Sodium 139 Potassium 3.3 L Chloride 98 Carbon Dioxide 28 BUN 11 Creatinine 0.81 Glucose 103 Calcium 9.4 Cardiac Enzymes 05/23/25 Range/Units 10:39 Troponin I 1.790 H* (0.000-0.034) ng/mL Liver Function 05/23/25 Range/Units 10:39 Total Bilirubin 1.3 (0.2-1.3) mg/dL AST 37 (17-59) U/L ALT 45 (6-50) U/L Alkaline Phosphatase 57 (38-126) U/L Albumin 5.1 (3.5-5.1) g/dL Urine 05/23/25 Range/Units 10:40 Urine Color Yellow (Yellow) Urine Appearance Clear (Clear) Urine pH 6.5 (5.0-9.0) Ur Specific [place] 1.009 (1.001-1.035) Urine Protein Negative (Negative) mg/dL Urine Glucose (UA) Negative (Negative) mg/dL Assessment and Plan Assessment and plan (1) Elevated troponin: Code(s): R79.89 - Other specified abnormal findings of blood chemistry Status: Acute Assessment and Plan: Cardiology consulted Nitro p.r.n. Troponins trending down EKG p.r.n. Echo in a.m. (2) C. difficile colitis: Code(s): A04.72 - Enterocolitis due to Clostridium difficile, not specified as recurrent Status: Acute Assessment and Plan: From unknown cause Oral vancomycin started IVF for hydration A.m. labs (3) Tachycardia: Code(s): R00.0 - Tachycardia, unspecified Status: Acute Assessment and Plan: Likely due to acute dehydration from diarrhea IV bolus given in ED Another L bolus followed by IVF Tachycardia resolved (4) Rectal bleed: Code(s): K62.5 - Hemorrhage of anus and rectum Status: Acute Assessment and Plan: Could be due to C diff colitis GI consulted Okay for diet now, NPO midnight (5) Hypokalemia: Code(s): E87.6 - Hypokalemia Status: Acute Assessment and Plan: Likely due to acute diarrhea Replaced in ED BMP in the morning Quality VTE Prophylaxis VTE prophylaxis: mechanical ordered Hospitalist MIPS Advance Care Plan I have confirmed that the patient's Advanced Care Plan is present, code status is documented, or surrogate decision maker is listed in patient medical record.: Yes Medication Reconciliation I have utilized all available resources to obtain, update and review the patients current medications (includes all prescriptions, OTC, herbals, cannabis, and nutritional supplements).: Yes
[2025-05-23 14:32] LABS: Troponin I 1.600 ng/mL (0.000-0.034)
[2025-05-23] MEDS: SODIUM CHLORIDE 0.9% IV 1,000 ML 125 ML IV CONT ×2 (14:50→23:26)
--- NOTE | 2025-05-23 14:53 | P.CONCA_ITS ---
Assessment and Plan Assessment and plan (1) Elevated troponin: Code(s): R79.89 - Other specified abnormal findings of blood chemistry Status: Acute (2) Tachycardia: Code(s): R00.0 - Tachycardia, unspecified Status: Acute (3) Diarrhea: Code(s): R19.7 - Diarrhea, unspecified Status: Acute (4) Rectal bleed: Code(s): K62.5 - Hemorrhage of anus and rectum Status: Acute (5) Hypokalemia: Code(s): E87.6 - Hypokalemia Status: Acute (6) C. difficile colitis: Code(s): A04.72 - Enterocolitis due to Clostridium difficile, not specified as recurrent Status: Acute Plan Elevated troponin/chest pain. His chest pain has resolved and was atypical as made worse with movement. Troponin are flat at 1.79 and 1.60. Most likely represent demand ischemia in setting of acute C-diff colitis. His EKG demonstrates sinus tachycardia with no acute ST/T wave changes. He had echocardiogram today that shows a normal EF of 65% with no wall motion abnormality. CXR with no acute cardiopulmonary process. At this time no invasive w/u planned. Sinus tachycardia. Most likely secondary to underlying infection. Will monitor and replete lytes and hydration as needed. Diarrhea/C-diff colitis-with reports of bloody stools. Found to be positive for C-diff colitis. Has been started on antibiotic therapy and GI consult pending Hypokalemia-K of 3.3 being repleted per primary team History of Present Illness History of Present Illness Consult date/time: 05/23/25 14:53 Requesting physician: Radha Tomlin APRN Consult reason: Other (elevated troponin ) Reason For Visit: diarrhea Narrative: Chris Connors is a 24 y.o. male who presented to the ER with c/o diarrhea, chest pain and blood stools. Patient reports Thursday night he began having frequent loose stools, with at least 15 that night. He then noted on Thursday he had a pain in the mid chest that was dull and worse with movement. He states pain has since resolved. Denies any nausea or vomiting. No reports of any fever or chills. He denies any associated shortness of breath, dizziness, or palpitations. No previous cardiac history. No recent ill contacts. We were consulted as he was noted to have an elevated troponin in the ER. Review of Systems 2 Review of Systems: All systems reviewed & are unremarkable except as noted in HPI and below Meds Home Medications and Allergies Allergies Allergy/AdvReac Type Severity Reaction Status Date / Time amoxicillin Allergy Mild Hives Verified 05/23/25 15:44 Vital Signs Vital Signs - 24 hr 05/23/25 10:05 05/23/25 10:10 05/23/25 10:11 Temperature 37.1 C Pulse Rate 97 113 H 111 H Respiratory Rate 21 H 14 20 Blood Pressure 123/84 123/84 Pulse Oximetry 99 98 Oxygen Delivery Room Air 05/23/25 10:15 05/23/25 10:16 05/23/25 10:33 Temperature Pulse Rate 101 H 104 H 111 H Respiratory Rate 19 19 15 Blood Pressure 124/91 H Pulse Oximetry 98 98 98 Oxygen Delivery 05/23/25 11:25 05/23/25 11:35 05/23/25 11:45 Temperature Pulse Rate 91 137 H Respiratory Rate 23 H 44 H Blood Pressure Pulse Oximetry 98 98 Oxygen Delivery 05/23/25 12:05 05/23/25 12:15 05/23/25 13:20 Temperature Pulse Rate 103 H 105 H Respiratory Rate 18 23 H Blood Pressure 119/81 Pulse Oximetry 98 100 Oxygen Delivery 05/23/25 13:21 05/23/25 13:30 05/23/25 13:31 Temperature Pulse Rate 100 105 H 100 Respiratory Rate 22 H 23 H 21 H Blood Pressure 123/74 Pulse Oximetry Oxygen Delivery 05/23/25 13:45 05/23/25 13:46 05/23/25 14:00 Temperature Pulse Rate 97 98 100 Respiratory Rate 17 23 H 14 Blood Pressure 117/65 Pulse Oximetry Oxygen Delivery 05/23/25 14:01 05/23/25 14:15 05/23/25 14:16 Temperature Pulse Rate 100 91 99 Respiratory Rate 18 12 17 Blood Pressure 109/72 103/63 Pulse Oximetry 93 93 Oxygen Delivery 05/23/25 14:17 05/23/25 14:30 05/23/25 14:31 Temperature Pulse Rate 93 94 94 Respiratory Rate 21 H 20 20 Blood Pressure 111/67 Pulse Oximetry 93 Oxygen Delivery Exam 2 Const: General: comfortable and no acute distress HENMT: Mouth: Yes moist mucous membranes Neck: Neck: no JVD Thyroid: thyroid normal Resp: Effort & Inspection: normal respiratory effort Auscultation: clear to auscultation bilaterally Cardio: Rate: tachycardic Rhythm: regular rhythm Skin: General skin exam: normal color and no rashes or lesions noted Neuro: Speech: normal speech Extrem: General: normal to inspection Psych: Mental Status: mental status grossly normal Results Labs and Meds 05/23/25 10:39 05/23/25 10:39 Lab results: Cardiac Enzymes 05/23/25 05/23/25 Range/Units 10:39 14:01 AST 37 (17-59) U/L Troponin I 1.790 H* 1.600 H* (0.000-0.034) ng/mL Coagulation 05/23/25 Range/Units 11:29 PT 14.5 (11.1-14.7) Seconds APTT 30.0 (22.3-36.8) Seconds CBC 05/23/25 Range/Units 10:39 WBC 5.8 (4.5-10.0) K/mm3 RBC 5.33 (4.6-6.20) M/mm3 Hgb 16.4 (14.0-18.0) g/dL Hct 46.6 (42.0-52.0) % Plt Count 188 (150-375) k/mm3 Lymph # (Auto) 0.99 (0.9-3.2) K/mm3 [place] # (Auto) 1.1 H (0.1-0.6) K/mm3 Eos # (Auto) 0.1 (0-0.3) K/mm3 Baso # (Auto) 0.0 (0.0-0.1) K/mm3 Comprehensive Metabolic Panel 05/23/25 Range/Units 10:39 Sodium 139 (137-145) mmol/L Potassium 3.3 L (3.4-5.0) mmol/L Chloride 98 (98-107) mmol/L Carbon Dioxide 28 (22-30) mmol/L BUN 11 (9-20) mg/dL Creatinine 0.81 (0.7-1.3) mg/dL Glucose 103 (65-110) mg/dL Calcium 9.4 (8.4-10.2) mg/dL AST 37 (17-59) U/L ALT 45 (6-50) U/L Alkaline Phosphatase 57 (38-126) U/L Total Protein 8.7 H (6.3-8.2) g/dL Albumin 5.1 (3.5-5.1) g/dL Intake and Output 05/22/25 05/23/25 05/23/25 23:59 07:59 15:59 Intake Total 1000 Balance 1000 Intake: IV 1000 Sodium Chloride 0.9% IV 1,000 1000 ml @ 999 mls/hr IV CONT .Q1H1M STA Rx#:[id number] Patient Weight 05/23/25 23:59 Weight 56.8 kg Imaging and Cardiology Echo: report reviewed (EF 60-65% with normal systolic function. No significant valvular abnormalities. ) EKG results: image reviewed (Sinus tachycardia with possible right idioventricular delay. Non-specific ST/T wave changes ) EKG Interpretation EKG: sinus rhythm and no acute changes EKG shows: tachycardia
--- NOTE | 2025-05-23 15:38 | ADMGEN ---
This patient, Chris Connors, was admitted to IMU Room 212-01 at 1517. Patient/family oriented to hospital policies and general routines including ID bracelet, bed and alarms, visiting hours, pain management, procedures, bathroom and other care routines, personal items, smoking policy, room service/diet, and visiting hours. Information on how to activate the Rapid Response Team has been discussed. Patient/Family are encouraged to report perceived risks to care and to ask questions if they do not understand what they are told or what they should do.
[2025-05-23] MEDS: VANCOMYCIN HCL 125 MG ORAL CAPSULE PO ×2 (18:31→23:26)
[2025-05-23 18:48] LABS: Troponin I 0.866 ng/mL (0.000-0.034)
[2025-05-24] VITALS (12 sets, daily range): BP systolic 114–130; BP diastolic 62–73; PULSE 68–106; RESP 14–18; TEMP 36.8–36.9; O2SAT 98–100
[2025-05-24 04:20] LABS: Hematocrit 36.4 % (42.0-52.0); Hemoglobin 12.6 g/dL (14.0-18.0); Immature Granulocyte Percent A 0.4 % (0-0.5); Lymphocytes Absolute Auto 1.32 K/mm3 (0.9-3.2); Mean Corpuscular HGB Conc 34.6 g/dl (32-36); Mean Corpuscular Hemoglobin 30.7 pg (26-34); Mean Corpuscular Volume 88.8 fl (80-100); Nucleated Red Blood Cells Absolute Auto 0.000 K/mm3 (0.0-0.012); Nucleated Red Blood Cells Perc 0.0 % (0.0-0.2); Platelet Count Result 147 k/mm3 (150-375); Red Blood Count 4.10 M/mm3 (4.6-6.20); White Blood Count 5.2 K/mm3 (4.5-10.0)
[2025-05-24 04:29] LABS: Anion Gap 8 mmol/L (4-12); Blood Urea Nitrogen 8 mg/dL (9-20); Calcium 8.1 mg/dL (8.4-10.2); Carbon Dioxide 23 mmol/L (22-30); Chloride 107 mmol/L (98-107); Estimated CRCL calculation 118 ml/min; Estimated Glomerular Filt Rate > 60; Glucose 85 mg/dL (65-110); Potassium 3.6 mmol/L (3.4-5.0); Sodium 138 mmol/L (137-145)
[2025-05-24] MEDS: SODIUM CHLORIDE 0.9% IV 1,000 ML 125 ML IV CONT ×2 (05:54→14:46)
[2025-05-24] MEDS: VANCOMYCIN HCL 125 MG ORAL CAPSULE PO ×2 (05:54→12:41)
--- NOTE | 2025-05-24 09:49 | P.PNCA_ITS ---
Progress Note: A&P Assessment and Plan (1) Elevated troponin: Code(s): R79.89 - Other specified abnormal findings of blood chemistry Status: Acute (2) Tachycardia: Code(s): R00.0 - Tachycardia, unspecified Status: Acute (3) Diarrhea: Code(s): R19.7 - Diarrhea, unspecified Status: Acute (4) Rectal bleed: Code(s): K62.5 - Hemorrhage of anus and rectum Status: Acute (5) Hypokalemia: Code(s): E87.6 - Hypokalemia Status: Acute (6) C. difficile colitis: Code(s): A04.72 - Enterocolitis due to Clostridium difficile, not specified as recurrent Status: Acute Plan Elevated troponin/chest pain. His chest pain has resolved and was atypical as made worse with movement. Troponin are flat at 1.79 and 1.60 and now 0.866. Most likely represent demand ischemia in setting of acute C-diff colitis. His EKG demonstrates sinus tachycardia with no acute ST/T wave changes. He had echocardiogram today that shows a normal EF of 65% with no wall motion abnormality. CXR with no acute cardiopulmonary process. At this time no invasive w/u planned. Sinus tachycardia. Most likely secondary to underlying infection. Will monitor and replete lytes and hydration as needed. Diarrhea/C-diff colitis-with reports of bloody stools. Found to be positive for C-diff colitis. Has been started on antibiotic therapy and GI consult pending Hypokalemia-resolved At this time no further cardiology recommendations Will sign off thank you for consult please call with any further questions or concerns Subjective Date/time seen: 05/24/25 09:49 Interval history: Patient is up in room. Mother is at bedside. Patient reports continued diarrhea. No further reports of chest pain. Denies any dizziness, nausea, or shortness of breath. Review of Systems Review of Systems: All systems reviewed & are unremarkable except as noted in HPI and below Exam Narrative: General: Alert and oriented in NAD Neck: no JVD Resp: lungs CTAB CV: S1, S2 GI: abd soft. Non-tender Extremities: no edema Objective Data Vital Signs Vital Signs: Vital Signs - 24 hr 05/23/25 10:05 05/23/25 10:10 05/23/25 10:11 Temperature 37.1 C Pulse Rate 97 113 H 111 H Respiratory Rate 21 H 14 20 Blood Pressure 123/84 123/84 Pulse Oximetry 99 98 Oxygen Delivery Room Air 05/23/25 10:15 05/23/25 10:16 05/23/25 10:33 Temperature Pulse Rate 101 H 104 H 111 H Respiratory Rate 19 19 15 Blood Pressure 124/91 H Pulse Oximetry 98 98 98 Oxygen Delivery 05/23/25 11:25 05/23/25 11:35 05/23/25 11:45 Temperature Pulse Rate 91 137 H Respiratory Rate 23 H 44 H Blood Pressure Pulse Oximetry 98 98 Oxygen Delivery 05/23/25 12:05 05/23/25 12:15 05/23/25 13:20 Temperature Pulse Rate 103 H 105 H Respiratory Rate 18 23 H Blood Pressure 119/81 Pulse Oximetry 98 100 Oxygen Delivery 05/23/25 13:21 05/23/25 13:30 05/23/25 13:31 Temperature Pulse Rate 100 105 H 100 Respiratory Rate 22 H 23 H 21 H Blood Pressure 123/74 Pulse Oximetry Oxygen Delivery 05/23/25 13:45 05/23/25 13:46 05/23/25 14:00 Temperature Pulse Rate 97 98 100 Respiratory Rate 17 23 H 14 Blood Pressure 117/65 Pulse Oximetry Oxygen Delivery 05/23/25 14:01 05/23/25 14:15 05/23/25 14:16 Temperature Pulse Rate 100 91 99 Respiratory Rate 18 12 17 Blood Pressure 109/72 103/63 Pulse Oximetry 93 93 Oxygen Delivery 05/23/25 14:17 05/23/25 14:30 05/23/25 14:31 Temperature Pulse Rate 93 94 94 Respiratory Rate 21 H 20 20 Blood Pressure 111/67 Pulse Oximetry 93 Oxygen Delivery 05/23/25 15:17 05/23/25 16:00 05/23/25 18:00 Temperature 37.6 C Pulse Rate 101 H 101 H 99 Respiratory Rate 14 Blood Pressure 132/88 Pulse Oximetry 98 Oxygen Delivery 05/23/25 20:00 05/23/25 20:00 05/23/25 20:00 Temperature 36.8 C Pulse Rate 100 100 100 Respiratory Rate 14 14 Blood Pressure 113/63 Pulse Oximetry 94 94 Oxygen Delivery Room Air 05/23/25 21:53 05/23/25 23:27 05/23/25 23:58 Temperature 36.7 C Pulse Rate 86 86 82 Respiratory Rate 14 14 Blood Pressure 122/75 Pulse Oximetry 100 100 Oxygen Delivery Room Air 05/23/25 23:58 05/24/25 02:00 05/24/25 04:00 Temperature Pulse Rate 82 82 102 H Respiratory Rate 14 Blood Pressure Pulse Oximetry 100 Oxygen Delivery Room Air 05/24/25 04:00 05/24/25 04:00 05/24/25 06:00 Temperature 36.9 C Pulse Rate 102 H 97 86 Respiratory Rate 14 Blood Pressure 130/73 Pulse Oximetry 99 Oxygen Delivery 05/24/25 07:27 05/24/25 08:00 Temperature 36.8 C Pulse Rate 106 H 89 Respiratory Rate 16 Blood Pressure 115/69 Pulse Oximetry 99 Oxygen Delivery Intake/Output Intake/Output: Intake & Output 05/21/25 05/22/25 05/23/25 05/24/25 23:59 23:59 23:59 23:59 Intake Total 2490 1158.3 Output Total 550 Balance 1940 1158.3 Meds/Results Medications: Active Medications Generic Name Dose Route Start Last Admin Trade Name Freq PRN Reason Stop Dose Admin Acetaminophen 650 mg 05/23/25 13:52 Acetaminophen 325 Mg Tablet PO Q4H PRN Mild Pain (1-3) or Fever Hydrocodone Bitart/Acetaminophen 1 tab 05/23/25 13:52 Hydrocodone/Acetaminophen (*Crx) 5-325 Mg Tablet PO Q4H PRN Moderate Pain (4-6) Sodium Chloride 1,000 mls @ 125 mls/hr 05/23/25 13:55 05/24/25 05:54 Normal Saline Iv IV CONT 125 mls/hr .Q8H LAURA Administration Morphine Sulfate 2 mg 05/23/25 14:02 Morphine Sulfate (*Crx) 4 Mg/Ml Inj IV PUSH Q5M PRN Pain Rated 4-6 Nitroglycerin 0.4 mg 05/23/25 13:54 Nitroglycerin Sl 0.4 Mg Tablet SUBLINGUAL Q5MIN PRN Chest Pain Perflutren Lipid Microsphere 0 ml 05/23/25 11:32 Perflutren Lipid Microspheres 1.5 Ml Vial Diluted To 10 Ml Total Volume IV PU SH 05/26/25 11:33 ONCE PRN adequate visualization Protocol Vancomycin HCl 125 mg 05/23/25 18:00 05/24/25 05:54 Vancomycin Hcl 125 Mg Oral Capsule PO 06/02/25 17:59 125 mg Q6HR LAURA Administration Radiology Results: ITS Impressions Chest X-Ray 05/23/25 11:47 IMPRESSION: 1. Normal chest radiograph. Labs Labs: Laboratory Results - last 24 hr 05/23/25 05/23/25 05/23/25 10:38 10:39 10:40 WBC 5.8 RBC 5.33 Hgb 16.4 Hct 46.6 MCV 87.4 MCH 30.8 MCHC 35.2 RDW 11.8 Plt Count 188 MPV 9.7 Immature Gran % (Auto) 0.2 Neut % (Auto) 61.9 Lymph % (Auto) 17.0 L [place] % (Auto) 19.2 H Eos % (Auto) 1.4 Baso % (Auto) 0.3 Lymph # (Auto) 0.99 [place] # (Auto) 1.1 H Eos # (Auto) 0.1 Baso # (Auto) 0.0 Abs Immat Gran (auto) 0.01 Absolute Neuts (auto) 3.6 Absolute Nucleated RBC 0.000 Nucleated RBC % 0.0 PT INR APTT D-Dimer Sodium 139 Potassium 3.3 L Chloride 98 Carbon Dioxide 28 Anion Gap 13 H BUN 11 Creatinine 0.81 Estim Creat Clear Calc 100 Estimated GFR > 60 Glucose 103 Calcium 9.4 Total Bilirubin 1.3 AST 37 ALT 45 Alkaline Phosphatase 57 Troponin I 1.790 H* Total Protein 8.7 H Albumin 5.1 Lipase 46 TSH (Reflex) 2.180 Urine Color Yellow Urine Appearance Clear Urine pH 6.5 Ur Specific [place] 1.009 Urine Protein Negative Urine Glucose (UA) Negative Urine Ketones 2+ H Ur Blood (Man) Negative Urine Nitrate Negative Urine Bilirubin Negative Urine Urobilinogen 0.2 Leukocyte Esterase Rfl Negative Urine Opiates Screen Negative Urine Methadone Screen Negative Ur Barbiturates Screen Negative Ur Phencyclidine Scrn Negative Ur Amphetamine Screen Negative U Benzodiazepines Scrn Negative Urine Cocaine Screen Negative U Cannabinoids Screen Negative C. difficile (PCR) Positive A* 05/23/25 05/23/25 05/23/25 11:29 14:01 18:19 WBC RBC Hgb Hct MCV MCH MCHC RDW Plt Count MPV Immature Gran % (Auto) Neut % (Auto) Lymph % (Auto) [place] % (Auto) Eos % (Auto) Baso % (Auto) Lymph # (Auto) [place] # (Auto) Eos # (Auto) Baso # (Auto) Abs Immat Gran (auto) Absolute Neuts (auto) Absolute Nucleated RBC Nucleated RBC % PT 14.5 INR 1.1 APTT 30.0 D-Dimer 0.35 Sodium Potassium Chloride Carbon Dioxide Anion Gap BUN Creatinine Estim Creat Clear Calc Estimated GFR Glucose Calcium Total Bilirubin AST ALT Alkaline Phosphatase Troponin I 1.600 H* 0.866 H* D Total Protein Albumin Lipase TSH (Reflex) Urine Color Urine Appearance Urine pH Ur Specific [place] Urine Protein Urine Glucose (UA) Urine Ketones Ur Blood (Man) Urine Nitrate Urine Bilirubin Urine Urobilinogen Leukocyte Esterase Rfl Urine Opiates Screen Urine Methadone Screen Ur Barbiturates Screen Ur Phencyclidine Scrn Ur Amphetamine Screen U Benzodiazepines Scrn Urine Cocaine Screen U Cannabinoids Screen C. difficile (PCR) 05/24/25 03:55 WBC 5.2 RBC 4.10 L Hgb 12.6 L D Hct 36.4 L MCV 88.8 MCH 30.7 MCHC 34.6 RDW 11.8 Plt Count 147 L MPV 9.3 Immature Gran % (Auto) 0.4 Neut % (Auto) 54.2 Lymph % (Auto) 25.4 [place] % (Auto) 17.9 H Eos % (Auto) 1.9 Baso % (Auto) 0.2 Lymph # (Auto) 1.32 [place] # (Auto) 0.9 H Eos # (Auto) 0.1 Baso # (Auto) 0.0 Abs Immat Gran (auto) 0.02 Absolute Neuts (auto) 2.8 Absolute Nucleated RBC 0.000 Nucleated RBC % 0.0 PT INR APTT D-Dimer Sodium 138 Potassium 3.6 Chloride 107 Carbon Dioxide 23 Anion Gap 8 BUN 8 L Creatinine 0.67 L Estim Creat Clear Calc 118 Estimated GFR > 60 Glucose 85 Calcium 8.1 L Total Bilirubin AST ALT Alkaline Phosphatase Troponin I Total Protein Albumin Lipase TSH (Reflex) Urine Color Urine Appearance Urine pH Ur Specific [place] Urine Protein Urine Glucose (UA) Urine Ketones Ur Blood (Man) Urine Nitrate Urine Bilirubin Urine Urobilinogen Leukocyte Esterase Rfl Urine Opiates Screen Urine Methadone Screen Ur Barbiturates Screen Ur Phencyclidine Scrn Ur Amphetamine Screen U Benzodiazepines Scrn Urine Cocaine Screen U Cannabinoids Screen C. difficile (PCR)
--- NOTE | 2025-05-24 16:37 | P.CONGI_ITS ---
Assessment and Plan Assessment and plan (1) C. difficile colitis: Code(s): A04.72 - Enterocolitis due to Clostridium difficile, not specified as recurrent Status: Acute Assessment and Plan: already feeling much better after oral vancomycin unsure how he got it, denies use of abx this caused dehydration, colitis with blood in stools s/p fluids and tolerating diet doing much better, probably home tomorrow (2) Bloody diarrhea: Code(s): R19.7 - Diarrhea, unspecified Status: Acute Assessment and Plan: no more blood in stools today, less frequent diarrhea (3) Dehydration: Code(s): E86.0 - Dehydration Status: Acute Assessment and Plan: hemoconcentrated on arrival better now (4) Elevated troponin: Code(s): R79.89 - Other specified abnormal findings of blood chemistry Status: Acute Assessment and Plan: evaluated by informatics coordinator, probably strain from dehydration/tachycardia/colitis, etc (5) Hypokalemia: Code(s): E87.6 - Hypokalemia Status: Acute Assessment and Plan: repleted GI Consult Note Consult date/time: 05/24/25 16:37 Reason for consult: c diff colitis, bloody diarrhea HPI: Chris Connors is a 24 year old male healthy male here with new onset of bloody diarrhea. He says that started 3 days prior to arrival and then noted blood as well, first day more than 10 episodes. He also had chest. Patient denies being around sick contacts, recent antibiotic use. Patient states that he lives in apartment with 2 other roommates and fairly clean. Never has been sick like this, denies history of taking medications and never had scopes. ER hgb 16, potassium 3.3, anion gap 13, troponin 1.790, UA negative for infection, toxicology negative, C diff positive. Chest x-ray with no acute findings. Today noted hgb down to 12.6 from 16 but after fluids (on arrival also was dehydrated, lethargy and generalized weakness) Review of Systems 2 Constitutional: Constitutional: Reports fatigue and Reports lethargy Eyes: Eyes: Denies blurry vision ENT: Reports Normal hearing present Cardiovascular: Cardiovascular: Reports chest pain Respiratory: Respiratory: Denies cough Gastrointestinal: Gastrointestinal: Reports abdominal pain and Reports diarrhea Genitourinary: Genitourinary: Denies dysuria Musculoskeletal: Musculoskeletal: Denies neck pain Integumentary/Breasts: Skin/Breast: Denies rash Neurologic: Denies Abnormal speech present Psychiatric: Psychiatric: Denies anxiety PMF Past Medical History Medical History (Updated 05/24/25 @ 16:41 by River Laboy MD) Dehydration Bloody diarrhea Social History Social History Smoking status: Never smoker Second hand tobacco smoke exposure: No Alcohol intake: former Substance use: never Substance use type: does not use Lack of Transportation: YES Lack of Food: Never True Current Housing: I Have Housing Concerned About Future Housing: No Difficulty Paying Gas/Electric Bills: No Difficulty Paying for Meds: No Currently Unemployed: No Education: Bachelor's Degree Difficulty w/ Childcare or Family Care: No Spiritual care concerns: No Meds Home Medications and Allergies Home Medications ?Medication ?Instructions ?Recorded ?Confirmed ?Type No Home Medications 05/23/25 05/23/25 H istory Allergies Allergy/AdvReac Type Severity Reaction Status Date / Time amoxicillin Allergy Mild Hives Verified 05/23/25 15:44 Vital Signs Vital Signs - 24 hr 05/23/25 18:00 05/23/25 20:00 05/23/25 20:00 Temperature 98.2 F Pulse Rate 99 100 100 Respiratory Rate 14 14 Blood Pressure 113/63 Pulse Oximetry 94 94 Oxygen Delivery Room Air 05/23/25 20:00 05/23/25 21:53 05/23/25 23:27 Temperature 98.1 F Pulse Rate 100 86 86 Respiratory Rate 14 Blood Pressure 122/75 Pulse Oximetry 100 Oxygen Delivery 05/23/25 23:58 05/23/25 23:58 05/24/25 02:00 Temperature Pulse Rate 82 82 82 Respiratory Rate 14 Blood Pressure Pulse Oximetry 100 Oxygen Delivery Room Air 05/24/25 04:00 05/24/25 04:00 05/24/25 04:00 Temperature 98.4 F Pulse Rate 102 H 102 H 97 Respiratory Rate 14 14 Blood Pressure 130/73 Pulse Oximetry 100 99 Oxygen Delivery Room Air 05/24/25 06:00 05/24/25 07:27 05/24/25 08:00 Temperature 98.2 F Pulse Rate 86 106 H 89 Respiratory Rate 16 Blood Pressure 115/69 Pulse Oximetry 99 Oxygen Delivery 05/24/25 10:00 05/24/25 12:00 05/24/25 12:00 Temperature 98.4 F Pulse Rate 83 92 98 Respiratory Rate 18 Blood Pressure 117/73 Pulse Oximetry 99 Oxygen Delivery 05/24/25 14:00 05/24/25 16:00 Temperature 98.4 F Pulse Rate 89 81 Respiratory Rate 18 Blood Pressure 114/62 Pulse Oximetry 99 Oxygen Delivery Exam 2 Const: General: comfortable and no acute distress HENMT: Face/Nose/Sinus: Normal nares present Eyes: General: appearance normal, both eyes and all related structures Neck: Neck: supple Resp: Auscultation: clear to auscultation bilaterally Cardio: Rate: regular rate Rhythm: regular rhythm GI: Inspection: non-distended GI Palp: Yes Soft to palpation and No Tenderness to palpation present (GI) Auscultation: normal bowel sounds Skin: General skin exam: normal color Neuro: Speech: normal speech Extrem: General: normal to inspection Psych: Mental Status: mental status grossly normal Results Labs 05/24/25 03:55 05/24/25 03:55 Labs: Short CBC 05/24/25 Range/Units 03:55 WBC 5.2 (4.5-10.0) K/mm3 Hgb 12.6 L D (14.0-18.0) g/dL Hct 36.4 L (42.0-52.0) % Plt Count 147 L (150-375) k/mm3 [facility] 05/24/25 03:55 Sodium 138 Potassium 3.6 Chloride 107 Carbon Dioxide 23 BUN 8 L Creatinine 0.67 L Glucose 85 Calcium 8.1 L Cardiac Enzymes 05/23/25 Range/Units 18:19 Troponin I 0.866 H* D (0.000-0.034) ng/mL
--- NOTE | 2025-05-24 16:39 | PM.IMPN ---
Progress Note: A&P Assessment and Plan (1) Bloody diarrhea: Code(s): R19.7 - Diarrhea, unspecified Status: Acute (2) Hypokalemia: Code(s): E87.6 - Hypokalemia Status: Acute (3) C. difficile colitis: Code(s): A04.72 - Enterocolitis due to Clostridium difficile, not specified as recurrent Status: Acute (4) Elevated troponin: Code(s): R79.89 - Other specified abnormal findings of blood chemistry Status: Acute (5) Tachycardia: Code(s): R00.0 - Tachycardia, unspecified Status: Acute Plan Sinus tachycardia resolved. Elevated troponin likely due to tachycardia and diarrhea. Cardiology signed off. Replace electrolytes. Change vancomycin to fidaxomicin. Continue monitoring. Bloody diarrhea has resolved. Patient would like to keep fluids going. Decreased from 125 cc/hour to 83 cc/hour. Patient wishes to be full code. Regular diet. SCDs. Time Spent With Patient Time with patient: Greater than 35 minutes Subjective Date/time seen: 05/24/25 16:39 Interval history: No major acute overnight events. Patient had 1 loose bowel movement this morning. He denies shortness of breath, chest pain, fever, abdominal pain. Review of Systems Review of Systems: All systems reviewed & are unremarkable except as noted in HPI and below (Subjective) Exam Const: General: comfortable and no acute distress HENMT: Mouth: Yes moist mucous membranes Eyes: Pupils: Equal, round and reactive pupils present Neck: Neck: supple Resp: Effort & Inspection: normal respiratory effort Auscultation: clear to auscultation bilaterally Cardio: Rate: regular rate Rhythm: regular rhythm GI: Inspection: non-distended GI Palp: Yes Soft to palpation, No Firmness to palpation present (GI), No Tenderness to palpation present (GI) and No Guarding due to palpation present (GI) Auscultation: normal bowel sounds Neuro: Motor exam (neuro): 5/5 motor strength present throughout Extrem: General: no edema Objective Data Vital Signs Vital Signs: Vital Signs - 24 hr 05/23/25 18:00 05/23/25 20:00 05/23/25 20:00 Temperature 98.2 F Pulse Rate 99 100 100 Respiratory Rate 14 14 Blood Pressure 113/63 Pulse Oximetry 94 94 Oxygen Delivery Room Air 05/23/25 20:00 05/23/25 21:53 05/23/25 23:27 Temperature 98.1 F Pulse Rate 100 86 86 Respiratory Rate 14 Blood Pressure 122/75 Pulse Oximetry 100 Oxygen Delivery 05/23/25 23:58 05/23/25 23:58 05/24/25 02:00 Temperature Pulse Rate 82 82 82 Respiratory Rate 14 Blood Pressure Pulse Oximetry 100 Oxygen Delivery Room Air 05/24/25 04:00 05/24/25 04:00 05/24/25 04:00 Temperature 98.4 F Pulse Rate 102 H 102 H 97 Respiratory Rate 14 14 Blood Pressure 130/73 Pulse Oximetry 100 99 Oxygen Delivery Room Air 05/24/25 06:00 05/24/25 07:27 05/24/25 08:00 Temperature 98.2 F Pulse Rate 86 106 H 89 Respiratory Rate 16 Blood Pressure 115/69 Pulse Oximetry 99 Oxygen Delivery 05/24/25 10:00 05/24/25 12:00 05/24/25 12:00 Temperature 98.4 F Pulse Rate 83 92 98 Respiratory Rate 18 Blood Pressure 117/73 Pulse Oximetry 99 Oxygen Delivery 05/24/25 14:00 05/24/25 16:00 Temperature 98.4 F Pulse Rate 89 81 Respiratory Rate 18 Blood Pressure 114/62 Pulse Oximetry 99 Oxygen Delivery Intake/Output Intake/Output: Intake & Output 05/21/25 05/22/25 05/23/25 05/24/25 23:59 23:59 23:59 23:59 Intake Total 2490 3548.3 Output Total 550 Balance 1940 3548.3 Meds/Results Medications: Active Medications Generic Name Dose Route Start Last Admin Trade Name Freq PRN Reason Stop Dose Admin Acetaminophen 650 mg 05/23/25 13:52 Acetaminophen 325 Mg Tablet PO Q4H PRN Mild Pain (1-3) or Fever Fidaxomicin 200 mg 05/24/25 21:00 Fidaxomicin 200 Mg Tablet PO 06/03/25 20:59 Q12HR LAURA Sodium Chloride 1,000 mls @ 83 mls/hr 05/23/25 13:55 05/24/25 14:46 Normal Saline Iv IV CONT 125 mls/hr .Q12H3M LAURA Administration Perflutren Lipid Microsphere 0 ml 05/23/25 11:32 Perflutren Lipid Microspheres 1.5 Ml Vial Diluted To 10 Ml Total Volume IV PUSH 05/26/25 11:33 ONCE PRN adequate visualization Protocol Radiology Results: ITS Impressions Chest X-Ray 05/23/25 11:47 IMPRESSION: 1. Normal chest radiograph. Labs Labs: Laboratory Results - last 24 hr 05/23/25 05/24/25 18:19 03:55 WBC 5.2 RBC 4.10 L Hgb 12.6 L D Hct 36.4 L MCV 88.8 MCH 30.7 MCHC 34.6 RDW 11.8 Plt Count 147 L MPV 9.3 Immature Gran % (Auto) 0.4 Neut % (Auto) 54.2 Lymph % (Auto) 25.4 [place] % (Auto) 17.9 H Eos % (Auto) 1.9 Baso % (Auto) 0.2 Lymph # (Auto) 1.32 [place] # (Auto) 0.9 H Eos # (Auto) 0.1 Baso # (Auto) 0.0 Abs Immat Gran (auto) 0.02 Absolute Neuts (auto) 2.8 Absolute Nucleated RBC 0.000 Nucleated RBC % 0.0 Sodium 138 Potassium 3.6 Chloride 107 Carbon Dioxide 23 Anion Gap 8 BUN 8 L Creatinine 0.67 L Estim Creat Clear Calc 118 Estimated GFR > 60 Glucose 85 Calcium 8.1 L Troponin I 0.866 H* D
[2025-05-24] MEDS: FIDAXOMICIN 200 MG TABLET PO (20:37)
[2025-05-24] MEDS: SODIUM CHLORIDE 0.9% IV 1,000 ML 83 ML IV CONT (23:56)
[2025-05-25] VITALS (7 sets, daily range): BP systolic 106–119; BP diastolic 58–76; PULSE 69–88; RESP 12–18; TEMP 36.8–36.9; O2SAT 99–100
[2025-05-25 04:32] LABS: Hematocrit 37.6 % (42.0-52.0); Hemoglobin 13.3 g/dL (14.0-18.0); Immature Granulocyte Percent A 0.2 % (0-0.5); Lymphocytes Absolute Auto 1.35 K/mm3 (0.9-3.2); Mean Corpuscular HGB Conc 35.4 g/dl (32-36); Mean Corpuscular Hemoglobin 31.1 pg (26-34); Mean Corpuscular Volume 88.1 fl (80-100); Nucleated Red Blood Cells Absolute Auto 0.000 K/mm3 (0.0-0.012); Nucleated Red Blood Cells Perc 0.0 % (0.0-0.2); Platelet Count Result 160 k/mm3 (150-375); Red Blood Count 4.27 M/mm3 (4.6-6.20); White Blood Count 4.6 K/mm3 (4.5-10.0)
[2025-05-25 04:53] LABS: Anion Gap 8 mmol/L (4-12); Blood Urea Nitrogen 4 mg/dL (9-20); Calcium 8.5 mg/dL (8.4-10.2); Carbon Dioxide 26 mmol/L (22-30); Chloride 105 mmol/L (98-107); Estimated CRCL calculation 122 ml/min; Estimated Glomerular Filt Rate > 60; Glucose 87 mg/dL (65-110); Magnesium 2.0 mg/dL (1.6-2.3); Potassium 3.5 mmol/L (3.4-5.0); Sodium 139 mmol/L (137-145)
[2025-05-25 05:01] LABS: Ovalocytes 1+; Schistocytes None Seen
[2025-05-25 05:04] LABS: Procalcitonin 0.1 ng/mL
[2025-05-25] MEDS: FIDAXOMICIN 200 MG TABLET PO (09:46)
--- NOTE | 2025-05-25 13:56 | PM.DS ---
DS: Admitting Diagnosis Discharge Date 05/25/2025 Admitting Diagnosis Diarrhea DS: Discharge Diagnosis Discharge Diagnosis (1) C. difficile colitis: Code(s): A04.72 - Enterocolitis due to Clostridium difficile, not specified as recurrent Status: Acute DS: Summary Hospital Course Hospital Course: 24-year-old male previously healthy who is currently in college presents with 3 days of diarrhea 10 times per day. He also finally nose blood in his stool so he presented to the ER. Complained of chest pain as well. Denies sick contacts, incarceration, risky sexual activity, recent surgery, antibiotic use. He lives in apartment with 2 other roommates and they are fairly clean. Mother at bedside supported this statement. Patient complains of minimal abdominal pain. C diff positive. Started on fidaxomicin with significant improvement. Dilution of bloody diarrhea, stools are more formed. Afebrile. Hypokalemia resolved, received fluids as well. Patient feels safe to return home. Isolation orders have been placed. Chest pain resolved, troponin has peaked. Cardiology recommended no further management. He is stable for discharge to home on 05/25/2025. Time Spent with Patient Time attestation: Total time spent providing and/or coordinating discharge services: Time spent: Greater than 30 minutes Exam Const: General: comfortable and no acute distress HENMT: Mouth: Yes moist mucous membranes Eyes: Pupils: Equal, round and reactive pupils present Neck: Neck: supple Resp: Effort & Inspection: normal respiratory effort Auscultation: clear to auscultation bilaterally Cardio: Rate: regular rate Rhythm: regular rhythm GI: Inspection: non-distended GI Palp: Yes Soft to palpation, No Firmness to palpation present (GI), No Tenderness to palpation present (GI) and No Guarding due to palpation present (GI) Auscultation: normal bowel sounds Neuro: Motor exam (neuro): 5/5 motor strength present throughout Extrem: General: no edema DS: Data Data Completed and Pending Labs on day of discharge: Labs from last 24 hours 05/25/25 04:09 WBC 4.6 RBC 4.27 L Hgb 13.3 L Hct 37.6 L MCV 88.1 MCH 31.1 MCHC 35.4 RDW 11.8 Plt Count 160 MPV 9.4 Immature Gran % (Auto) 0.2 Neut % (Auto) 51.4 Lymph % (Auto) 29.7 [place] % (Auto) 14.5 H Eos % (Auto) 3.5 Baso % (Auto) 0.7 Lymph # (Auto) 1.35 [place] # (Auto) 0.7 H Eos # (Auto) 0.2 Baso # (Auto) 0.0 Abs Immat Gran (auto) 0.01 Absolute Neuts (auto) 2.3 Absolute Nucleated RBC 0.000 Band Neutrophils % Not Reportable Nucleated RBC % 0.0 Platelet Estimate Adequate Ovalocytes 1+ Schistocytes None seen Sodium 139 Potassium 3.5 Chloride 105 Carbon Dioxide 26 Anion Gap 8 BUN 4 L Creatinine 0.69 L Estim Creat Clear Calc 122 Estimated GFR > 60 Glucose 87 Calcium 8.5 Magnesium 2.0 Procalcitonin 0.1 Discharge Plan Discharge Attending physician on discharge: Salma Taveras Consulting providers: Dinorah Shanks; River Laboy Discharging Clinician: Salma Taveras Patient Disposition: Home Activity: may shower Diet: regular Discharge Instructions: Isolate from others until your diarrhea has resolved. always perform strict hand washing after using the restroom. if you have return of symptoms or fever, call PCP immediately or return to ER Patient Instructions: Antibiotic Form Patient Language: Malay Stand Alone Forms: General Discharge Information Follow-up/Referrals: PHYSICIAN NOT ON STAFF,NONSTAFF [Primary Care Provider] River Laboy MD [Physician, Gastroenterology] Referral Note: c diff in a young male. f/u Discharge Medications: New fidaxomicin 40 mg/mL suspension for reconstitution 200 mg PO Q12H 9 Days Qty: 90 0RF Date of admission: 05/23/25 12:37 Primary Care Provider: PHYSICIAN NOT ON STAFF,NONSTAFF Admitting Provider: Evert Abraham Attending physician on admission: Evert Abraham Condition: Stable Hospitalist MIPS Heart Failure (Exclusion) Patient has history of Heart Transplant or Left Ventricular Assistive Device?: No IF YES, STOP HERE Heart Failure (Qualifier) Patient has current or prior documentation of LVEF less than or equal to 40%, or mod/servere depressed LVSF?: No IF NO, STOP HERE
--- NOTE | 2025-05-25 16:26 | WPDGIPROGNO ---
Progress Note: A&P Assessment and Plan (1) C. difficile colitis: Code(s): A04.72 - Enterocolitis due to Clostridium difficile, not specified as recurrent Status: Acute Assessment and Plan: he is going home and will complete treatment with oral vanco (2) Dehydration: Code(s): E86.0 - Dehydration Status: Acute Assessment and Plan: resolved (3) Elevated troponin: Code(s): R79.89 - Other specified abnormal findings of blood chemistry Status: Acute (4) Tachycardia: Code(s): R00.0 - Tachycardia, unspecified Status: Acute Assessment and Plan: resolved (5) Bloody diarrhea: Code(s): R19.7 - Diarrhea, unspecified Status: Acute Assessment and Plan: diarrhea is slowing down and minimal blood after wiping, this is improved Subjective Date/time seen: 05/25/25 15:26 Interval history: he is doing better, ready to go home Review of Systems Review of Systems: All systems reviewed & are unremarkable except as noted in HPI and below Exam Const: General: comfortable and no acute distress HENMT: Face/Nose/Sinus: Normal nares present Eyes: General: appearance normal, both eyes and all related structures Neck: Neck: no JVD Resp: Auscultation: clear to auscultation bilaterally Cardio: Rate: regular rate Rhythm: regular rhythm GI: Inspection: non-distended GI Palp: Yes Soft to palpation Skin: General skin exam: normal color Neuro: General: gait normal Speech: normal speech Extrem: General: normal to inspection Psych: Mental Status: mental status grossly normal Objective Data Vital Signs Vital Signs: Vital Signs - 24 hr 05/24/25 18:00 05/24/25 20:00 05/24/25 20:00 Temperature 98.3 F Pulse Rate 88 68 90 Respiratory Rate 18 18 Blood Pressure 129/68 Pulse Oximetry 98 98 Oxygen Delivery Room Air 05/24/25 20:00 05/24/25 22:00 05/25/25 00:00 Temperature 98.3 F Pulse Rate 90 81 88 Respiratory Rate 18 Blood Pressure 107/64 Pulse Oximetry 100 Oxygen Delivery 05/25/25 00:00 05/25/25 00:00 05/25/25 02:00 Temperature Pulse Rate 88 88 74 Respiratory Rate 18 Blood Pressure Pulse Oximetry 100 Oxygen Delivery Room Air 05/25/25 04:00 05/25/25 04:00 05/25/25 04:00 Temperature 98.2 F Pulse Rate 78 78 81 Respiratory Rate 18 18 Blood Pressure 106/58 L Pulse Oximetry 100 100 Oxygen Delivery Room Air 05/25/25 06:00 05/25/25 08:00 05/25/25 08:00 Temperature 98.4 F Pulse Rate 69 88 84 Respiratory Rate 12 Blood Pressure 107/68 Pulse Oximetry 99 Oxygen Delivery 05/25/25 10:00 05/25/25 12:00 05/25/25 12:00 Temperature 98.5 F Pulse Rate 69 80 74 Respiratory Rate 16 Blood Pressure 119/76 Pulse Oximetry 100 Oxygen Delivery Intake/Output Intake/Output: Intake & Output 05/22/25 05/23/25 05/24/25 05/25/25 23:59 23:59 23:59 23:59 Intake Total 2490 5698.3 690 Output Total 550 300 900 Balance 1940 5398.3 -210 Meds/Results Radiology Results: ITS Impressions Chest X-Ray 05/23/25 11:47 IMPRESSION: 1. Normal chest radiograph. Labs Labs: Laboratory Results - last 24 hr 05/25/25 04:09 WBC 4.6 RBC 4.27 L Hgb 13.3 L Hct 37.6 L MCV 88.1 MCH 31.1 MCHC 35.4 RDW 11.8 Plt Count 160 MPV 9.4 Immature Gran % (Auto) 0.2 Neut % (Auto) 51.4 Lymph % (Auto) 29.7 Baldwin % (Auto) 14.5 H Eos % (Auto) 3.5 Baso % (Auto) 0.7 Lymph # (Auto) 1.35 Baldwin # (Auto) 0.7 H Eos # (Auto) 0.2 Baso # (Auto) 0.0 Abs Immat Gran (auto) 0.01 Absolute Neuts (auto) 2.3 Absolute Nucleated RBC 0.000 Band Neutrophils % Not Reportable Nucleated RBC % 0.0 Platelet Estimate Adequate Ovalocytes 1+ Schistocytes None seen Sodium 139 Potassium 3.5 Chloride 105 Carbon Dioxide 26 Anion Gap 8 BUN 4 L Creatinine 0.69 L Estim Creat Clear Calc 122 Estimated GFR > 60 Glucose 87 Calcium 8.5 Magnesium 2.0 Procalcitonin 0.1
== END 2025-05-25 15:47 | disposition home or self-care (01) ==
LOC: ANHED 12:44 → ANHIMU 14:54
PROVIDERS: Nurse Practitioner Gerontology; Admitting Provider Internal Medicine; Emergency Provider Registered Nurse; Visit Provider General Practice
DX: A04.72 Enterocolitis due to Clostridium difficile, not specified as recurrent (principal); E86.0 Dehydration; R79.89 Other specified abnormal findings of blood chemistry; R00.0 Tachycardia, unspecified; E87.6 Hypokalemia
CPT/HCPCS: 36415; 71046; 80048; 80053; 80307; 81003; 83690; 83735; 84145; 84443; 84484; 85025; 85380; 85610; 85730; 87493; 93005; 93306; 96361; 96374; 96375; 99285; A9270; G0378; J2470; J7030